=== PATIENT | female | born 1960 | race African-American/Black ===

== ENCOUNTER 2020-04-11 09:55 | Outpatient (REF) | payer OTHER, SELFPAY ==
[2020-04-11 13:50] LABS: Hematocrit 42.4 % (37-47); Hemoglobin 13.2 g/dl (12.0-16.0); Mean Corpuscular HGB Conc 31.1 g/dl (31.0-35.0); Mean Corpuscular Hemoglobin 29.5 pg (27.0-33.0); Mean Corpuscular Volume 94.6 fL (80-98); Mean Platelet Volume 11.3 fL (9.4-12.3); Platelet Count 259 X10*3/uL (160-400); Red Blood Count 4.48 X10*6/uL (4.20-5.50); Red Cell Distribution Width 14.2 % (11.0-16.0); White Blood Count 9.6 X10*3/uL (4.8-10.8)
[2020-04-11 14:12] LABS: Alanine Aminotransferase 34 U/L (0-31); Albumin Level 4.5 g/dL (3.5-5.0); Alkaline Phosphatase 101 U/L (39-117); Anion Gap 12 (12-20); Aspartate Amino Transferase 27 U/L (5-31); Bilirubin Direct < 0.2 mg/dL (0.0-0.5); Bilirubin Total 0.2 mg/dL (0.0-1.0); Blood Urea Nitrogen 21 mg/dL (9-16); Calcium 9.6 mg/dL (8.4-10.2); Carbon Dioxide 32 mmol/L (22-29); Chloride 105 mmol/L (96-108); Cholesterol 274 mg/dL; Estimated Glomerular Filt Rate > 60; Glucose Random 106 mg/dL (60-115); HDL Cholesterol 72 mg/dL; LDL Cholesterol Calculated 183 mg/dl; Potassium 4.7 mmol/l (3.3-5.1); Sodium 144 mmol/L (135-145); Total Protein 7.3 g/dL (6.5-8.0); Triglycerides 96 mg/dL
[2020-04-11 14:32] LABS: Thyroid Stimulating Hormone 0.54 uIU/mL (0.32-4.0)
[2020-04-11 15:09] LABS: Folate > 20.0 ng/mL (> or = 4.0); Vitamin B12 > 2000 pg/mL (200-900)
[2020-04-15 13:46] LABS: Vitamin D 25-OH, D2 <4 ng/mL; Vitamin D 25-OH, D3 54 ng/mL; Vitamin D 25-OH, Total 54 ng/mL (30-100)
== END 2020-04-11 09:56 | disposition home or self-care (01) ==
LOC: HO.10HDL 09:55
PROVIDERS: Visit Provider Internal Medicine
DX: I10 Essential (primary) hypertension (principal)
CPT/HCPCS: 36415; 80048; 80061; 80076; 82306; 82550; 82607; 82746; 84443; 85027

== ENCOUNTER 2020-05-07 13:01 | Outpatient (REF) | payer OTHER, SELFPAY ==
--- NOTE | ~2020-05-07 | MM_ITS ---
EXAMINATION: MM SCREENING DIGITAL BREAST TOMOSYNTHESIS, BILATERAL CLINICAL INFORMATION: Screening. Asymptomatic. The lifetime risk of breast cancer based on the Tyrer-Cuzick Model is 5%. COMPARISON: Mammography: 09/20/2018, 08/25/2017, 01/20/2017, 07/17/2016, 07/11/2016 (baseline), targeted left breast ultrasound 07/17/2016. TECHNIQUE: Digital breast tomosynthesis is performed in both the craniocaudal and mediolateral oblique views along with computer-aided detection (CAD). Synthesized 2D images are generated from the tomosynthesis. Additional bilateral CC views are provided. FINDINGS: There are scattered areas of fibroglandular density (ACR BI-RADS breast composition Category b). Breast tissue composition borders on heterogeneously dense in the anterior breasts. There is a stable circumscribed nodule central left breast similar to prior studies dating back to baseline exam 2016. Neither breast shows developing density or interval mass or architectural abnormality. No abnormal calcifications. No significant changes. MM/MM tomosynthesis screening BI IMPRESSION: No mammographic evidence of malignancy. ASSESSMENT: BI-RADS 2: Benign RECOMMENDATION: Routine annual mammography screening. This patient's information was entered into a reminder system with a target due date for their next mammogram.
== END 2020-05-07 13:02 | disposition home or self-care (01) ==
LOC: HO.MAMMO 13:01
PROVIDERS: PCP Internal Medicine; Visit Provider Internal Medicine
DX: Z12.31 Encounter for screening mammogram for malignant neoplasm of breast (principal)
CPT/HCPCS: 77063; 77067

== ENCOUNTER 2021-11-26 12:43 | Outpatient (REF) | payer OTHER, SELFPAY ==
--- NOTE | ~2021-11-26 | MM_ITS ---
EXAMINATION: MM SCREENING DIGITAL BREAST TOMOSYNTHESIS, BILATERAL CLINICAL INFORMATION: Screening. Asymptomatic. The lifetime risk of breast cancer based on the Tyrer-Cuzick Model is 4%. COMPARISON: Mammography: 05/07/2020 and studies dating back to 07/11/2016. TECHNIQUE: Digital breast tomosynthesis is performed in both the craniocaudal and mediolateral oblique views along with computer-aided detection (CAD). Synthesized 2D images are generated from the tomosynthesis. Additional right exaggerated craniocaudal view performed. FINDINGS: The breasts are heterogeneously dense, which may obscure small masses (ACR BI-RADS breast composition Category c). There are no significant masses, abnormal calcifications, or other abnormalities. There was question of an irregularly marginated density within the left breast on medial oblique projection however tomosynthesis views demonstrated this to represent superimposition of fibroglandular tissue. MM/MM tomosynthesis screening BI IMPRESSION: No mammographic evidence of malignancy. ASSESSMENT: BI-RADS 2: Benign. RECOMMENDATION: Routine annual mammography screening. This patient's information was entered into a reminder system with a target due date for their next mammogram.
== END 2021-11-26 12:44 | disposition home or self-care (01) ==
LOC: HO.MAMMO 12:43
PROVIDERS: PCP Internal Medicine; Visit Provider Internal Medicine
DX: Z12.31 Encounter for screening mammogram for malignant neoplasm of breast (principal)
CPT/HCPCS: 77063; 77067

== ENCOUNTER 2022-03-06 12:00 | Outpatient (REF) | payer OTHER, SELFPAY ==
[2022-03-06 14:33] LABS: Hematocrit 43.7 % (37.0-47.0); Hemoglobin 13.7 g/dl (12.0-16.0); Mean Corpuscular HGB Conc 31.4 g/dl (31.0-35.0); Mean Corpuscular Hemoglobin 29.5 pg (27.0-33.0); Mean Platelet Volume 11.4 fL (9.4-12.3); Platelet Count 310 X10*3/uL (160-400); Red Blood Count 4.65 X10*6/uL (4.20-5.50); Red Cell Distribution Width 14.4 % (11.0-16.0); White Blood Count 11.9 X10*3/uL (4.8-10.8)
[2022-03-06 15:16] LABS: Alanine Aminotransferase 35 U/L (0-31); Albumin Level 4.6 g/dL (3.5-5.0); Alkaline Phosphatase 118 U/L (39-117); Anion Gap 13 (12-20); Aspartate Amino Transferase 29 U/L (5-31); Bilirubin Direct < 0.2 mg/dL (0.0-0.5); Bilirubin Total 0.2 mg/dL (0.0-1.0); Blood Urea Nitrogen 18 mg/dL (9-16); Calcium 10.8 mg/dL (8.4-10.2); Carbon Dioxide 33 mmol/L (22-29); Chloride 103 mmol/L (96-108); Cholesterol 282 mg/dL; Estimated Glomerular Filt Rate 51; Glucose Random 111 mg/dL (60-115); HDL Cholesterol 73 mg/dL; LDL Cholesterol Calculated 179 mg/dl; Potassium 4.9 mmol/L (3.3-5.1); Sodium 144 mmol/L (135-145); Total Protein 7.5 g/dL (6.5-8.0); Triglycerides 152 mg/dL
[2022-03-06 17:21] LABS: Thyroid Stimulating Hormone 0.68 uIU/mL (0.32-4.0)
== END 2022-03-06 12:01 | disposition home or self-care (01) ==
LOC: HO.10HDL 12:00
PROVIDERS: Visit Provider Internal Medicine
DX: I10 Essential (primary) hypertension (principal)
CPT/HCPCS: 36415; 80048; 80061; 80076; 84443; 85027

== ENCOUNTER 2022-11-13 10:49 | Outpatient (AMB) | payer OTHER, SELFPAY ==
--- NOTE | 2022-11-13 10:51 | A.OFFPC_ITS ---
Vital Signs 11/13/22 10:52 Height 4 ft 11 in Weight 153 lb BMI 30.9 BP 160/100 H Blood Pressure Location Lt brachial Position Sitting Pulse 73 Pulse Source Pulse Oximeter Pulse Oximetry (%) 95 Oxygen Delivery Method Room Air Intake Visit Reasons: Annual exam Intake Note: Patient is here today for a physical. 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 Bolt Header: Not Required per policy Accompanied by: Self / Same As Patient Allergies No Known Allergies Allergy (Verified 11/13/22 14:45) Medication List - Last Reconciled 11/13/22 by Maxim Nye MD cyclobenzaprine 10 mg PO BEDTIME PRN lisinopril 40 mg PO DAILY metoprolol succinate ER 100 mg PO DAILY montelukast 10 mg PO DAILY omeprazole 20 mg PO DAILY simvastatin 80 mg PO BEDTIME spironolacton-hydrochlorothiaz 25-25 mg 1 tab PO DAILY Tobacco use date assessed: 11/13/22 Dental Screening Dental Screen Date: 11/13/22 Did you have a dental visit in the last 12 months?: Yes Did you have a dental problem in the last 6 months where you did not have access to dental care?: No Was dental information given to patient?: Patient has dentist HPI Annual exam HPI Details 62-year-old female presents to the office an annual physical. [facility] Medical History Essential (primary) hypertension Hypercalcemia Surgical History History of 3 sections History of ankle surgery History of cholecystectomy Social History Housing: House Alcohol intake: never Patient Tobacco Use Status: Never used Tobacco e-Cigarette/Vaping Use: Never Used Second Hand Smoke Exposure: No service: No Current occupational status: disabled Cognitive needs: No Hearing needs: No Vision needs: No Questionnaire Thrive Questionnaire Date Thrive assessed: 04/10/22 KRISTI-7 AMB Questionnaire KRISTI-7 Date KRISTI - 7 assessed: 04/10/22 Source: Developed by Drs. Malachi Angeles, Lisette Lipscomb, Tiago Garcia and colleagues, with an educational geena from [employer]. Physical exam (Primary Care) Vital Signs: Last Vital Signs Pulse 73 11/13/22 10:52 BP 160/100 H 11/13/22 10:52 Pulse Ox 95 11/13/22 10:52 Oxygen Delivery Method Room Air 11/13/22 10:52 Care Plan Goal for BP management: Blood pressure is elevated. Compliant with medications urged. Continue medications at same dosage. BMI result Body Mass Index 30.9 Tobacco/Smoking Status: Tobacco use Status Tobacco use date assessed 11/13/22 11/13/22 10:56 Patient Tobacco Use Status Never used Tobacco 11/13/22 10:56 e-Cigarette/Vaping Use Never Used 11/13/22 10:56 Thrive Assessment: Date of Thrive Assessment Date Thrive assessed 04/10/22 11/13/22 10:56 Advance Care Planning discussion: Exists, not on file Date of discussion: 11/13/22 Who was present: Patient Forms completed: MOLST Time spent: 1-15 minutes, not on file Actual minutes spent: 5 Const General: cooperative, healthy appearing and comfortable HENME Head: Yes normal to inspection and Yes atraumatic Eyes General: appearance normal, both eyes and all related structures Neck Neck: Yes normal visual inspection and Yes full ROM Chest Chest palpation & inspection: normal inspection of the chest and crepitus Resp Effort & Inspection: normal respiratory effort Auscultation: clear to auscultation bilaterally Cardio Jugular venous distension: no JVD Palpation: normal PMI Rate: regular rate Heart sounds: S1 normal heart sound present and S2 normal heart sound present GI Palpation (GI): Soft to palpation, Tenderness to palpation present (GI) and No hepatosplenomegaly present Extrem General: Yes normal to inspection and Yes full ROM Assessment and Plan Assessment & Plan (1) Essential (primary) hypertension: Code(s): I10 - Essential (primary) hypertension Plan: Blood pressure is elevated. Patient has not taken medications for a few days. Encourage compliance with medications. No change in dosages on the medication. (2) Annual physical exam: Code(s): Z00.00 - Encounter for general adult medical examination without abnormal findings Plan: Mammogram has been ordered. Up-to-date on colonoscopy. Coding Level of Care Code Est Pt Prev Care 40-64y(10335) Diagnoses Essential (primary) hypertension I10 Annual physical exam Z00.00 Additional Codes Vital Signs *Quality* - Advance Care Planning discussion: Exists, not on file ([id number]) Vital Signs *Quality* - Time spent: 1-15 minutes, not on file ([id number])
[2022-11-13 10:52] VITALS: BP 160/100; PULSE 73; O2SAT 95; BMI 30.9
== END 2022-11-13 11:11 | disposition home or self-care (01) ==
PROVIDERS: Visit Provider Internal Medicine
DX: I10 Essential (primary) hypertension (principal); Z00.00 Encounter for general adult medical examination without abnormal findings
CPT/HCPCS: 1123F; 1124F; 99396

== ENCOUNTER 2023-11-19 08:49 | Outpatient (AMB) | payer MEDICARE, SELFPAY ==
--- NOTE | 2023-11-19 08:50 | MHC.PC.OV ---
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 63-year-old female presents to the office to discuss her chronic medical conditions. Last week while going to a picnic, patient reports she collapsed on the sidewalk. She was taken to [facility] via ambulance. She was diagnosed with vasovagal syncope and noted to have elevated blood pressures. Patient's symptoms improved with IV hydration and discharged home. Patient does not check blood pressures at home as she does not have a cough. She lives with her son. Has been compliant with all 3 blood pressure medications. Reports occasional headache. Able to function and do all activities of daily living. Patient reports that she goes on walks with her dog and grandchildren. No shortness a breath, nausea or vomiting. [facility] Medical History Essential (primary) hypertension Hypercalcemia Surgical History History of ankle surgery History of 3 sections History of cholecystectomy Social History Housing: House Alcohol intake: never Patient Tobacco Use Status: Never used Tobacco e-Cigarette/Vaping Use: Never Used Second Hand Smoke Exposure: No service: No Current occupational status: disabled Cognitive needs: No Hearing needs: No Vision needs: No Questionnaire PHQ-9 Over the last 2 weeks, how often have you been bothered by any of the following problems? 1. Little interest or pleasure in doing things: not at all 2. Feeling down, depressed, or hopeless: not at all 3. Trouble falling or staying asleep, or sleeping too much: not at all 4. Feeling tired or having little energy: not at all 5. Poor appetite or overeating: not at all 6. Feeling bad about yourself - or that you are a failure or have let yourself or your family down: not at all 7. Trouble concentrating on things, such as reading the newspaper or watching television: not at all 8. Moving or speaking so slowly that other people could have noticed. Or the opposite - being so fidgety or restless that you have been moving around a lot more than usual: not at all 9. Thoughts that you would be better off or of hurting yourself in some way: not at all Total score: 0 Depression Screening Interpretation: Negative Depression Screening Done: Yes 08163 - PHQ-9 Billing: Yes Source: Developed by Drs. Malachi Angeles, Lisette Lipscomb, Tiago Garcia and colleagues, with an educational geena from [employer]. Thrive Questionnaire Date Thrive assessed: 11/19/23 I am a: Patient What is your living situation today?: I have a steady place to live Within the past 12 months, did the food you bought not last and you didn't have the money to get more?: Never true Within the past 12 months, did you worry whether your food would run out before you got money to buy more?: Never true Do you have trouble paying for medicines?: No Do you have trouble getting transportation to medical appointments?: No Do you have trouble paying your heating and electricity bill?: No Do you have trouble taking care of your child, family member or friend?: No Do you have trouble with day-to-day activities such as bathing, preparing meals, shopping, managing finances, etc.?: No Are you currently unemployed and looking for a job?: No Are you interested in more education?: No Please select the resources that you would like help with: None Currently or been in a relationship where the following occur: No concerns reported THRIVE Score: 0 AUDIT C Alcohol Use Questionnaire (AUDIT-C) 1. How often do you have a drink containing alcohol?: Never 3. How often do you have six or more drinks on one occasion?: Never Total Score: 0 KRISTI-7 AMB Questionnaire KRISTI-7 Date KRISTI - 7 assessed: 11/19/23 Feeling nervous, anxious, or on edge: 0 = Not at all Not being able to stop or control worryin = Not at all Worrying too much about different things: 0 = Not at all Trouble relaxin = Not at all Being so restless that it is hard to sit still: 0 = Not at all Becoming easily annoyed or irritable: 0 = Not at all Feeling afraid as if something awful might happen: 0 = Not at all Total KRISTI-7 score (0-4 normal; 5-9 mild; 10-14 moderate; 15-21 severe): 0 Source: Developed by Drs. Malachi Angeles, Lisette Lipscomb, Tiago Garcia and colleagues, with an educational geena from [employer]. Physical exam (Primary Care) Vital Signs: Last Vital Signs Pulse 85 11/19/23 08:51 BP 148/110 H 11/19/23 09:01 Pulse Ox 99 11/19/23 08:51 Oxygen Delivery Method Room Air 11/19/23 08:51 BMI result Body Mass Index 30.4 Tobacco/Smoking Status: Tobacco use Status Tobacco use date assessed 11/19/23 11/19/23 08:52 Patient Tobacco Use Status Never used Tobacco 11/19/23 08:52 e-Cigarette/Vaping Use Never Used 11/19/23 08:52 PHQ-9: PHQ-9 Score PHQ-9: Total score 0 11/19/23 08:52 Depression Screening Interpretation: Negative Thrive Assessment: Date of Thrive Assessment Date Thrive assessed 11/19/23 11/19/23 08:52 Currently or been in a relationship where the following occur: No concerns reported Const General: cooperative and healthy appearing Nutritional Appearance: well nourished Orientation/consciousness: patient oriented x3 Limitations: no limitations HENMT Head: Yes normal to inspection Eyes General: appearance normal, both eyes and all related structures Neck Neck: Yes normal visual inspection Chest Chest palpation & inspection: normal palpation of entire chest wall Resp Effort & Inspection: normal respiratory effort Neuro General: patient oriented x3 Assessment and Plan Assessment & Plan (1) Essential (primary) hypertension: Code(s): I10 - Essential (primary) hypertension Plan: 15 minutes spent reviewing the emergency room visit. Patient reports she is no longer homeless and is compliant with 3 blood pressure medications. Blood pressure is still continues to be high. A blood pressure cuff has been ordered, so that she can take frequent readings at home. Also community navigation has been involved so that we can continue to monitor her blood pressures. If there is a trend of elevated blood pressures present, I will be discontinuing a few of her current medications and adding new medications. 30 minutes in total was spent explaining to the patient the current plan. Orders: Referrals Gastroenterology Referral Z12.11 - Encounter for screening for malignant neoplasm of colon Coding Level of Care Code Est Pt Level 4 (52889) Complex EM visit Add On G2211 Diagnoses Essential (primary) hypertension I10
[2023-11-19 08:51] VITALS: BP 142/100; PULSE 85; O2SAT 99; BMI 30.4
[2023-11-19 09:01] VITALS: BP 148/110
== END 2023-11-19 10:16 | disposition home or self-care (01) ==
PROVIDERS: PCP Internal Medicine; Visit Provider Internal Medicine
DX: I10 Essential (primary) hypertension (principal)
CPT/HCPCS: 99214; G2211

== ENCOUNTER → 2023-12-24 08:50 | Outpatient (BNVA) | payer MEDICARE, SELFPAY | PROVIDERS: PCP Internal Medicine ==

== ENCOUNTER → 2023-12-31 08:53 | Outpatient (BNVA) | payer MEDICARE, SELFPAY | PROVIDERS: PCP Internal Medicine ==

== ENCOUNTER → 2024-01-14 08:43 | Outpatient (BNVA) | payer MEDICARE, SELFPAY | PROVIDERS: PCP Internal Medicine ==

== ENCOUNTER 2024-08-05 12:53 | Outpatient (AMB) | payer MEDICARE, SELFPAY ==
--- NOTE | 2024-08-05 12:54 | MHC.PC.OV ---
Vital Signs 08/05/24 12:56 Height 4 ft 11 in Weight 138 lb 4 oz BMI 27.9 BP 122/72 Blood Pressure Location Lt brachial Position Sitting Pulse 55 Pulse Source Pulse Oximeter Temp 96.9 F Temp Source Temporal Artery Scan Pulse Oximetry (%) 100 Oxygen Delivery Method Room Air Intake Visit Reasons: [facility] 07/15 fall & seizure Intake Note: Patient is here for hospital discharge follow up. Patient was discharged from [facility] on 07/14/24. Child Welfare Caseworker Required: No Busperson: Not Required per policy Accompanied by: Self / Same As Patient Allergies No Known Allergies Allergy (Verified 08/05/24 12:56) Tobacco use date assessed: 08/05/24 Dental Screening Dental Screen Date: 08/05/24 Did you have a dental visit in the last 12 months?: No Did you have a dental problem in the last 6 months where you did not have access to dental care?: No Was dental information given to patient?: Patient has dentist HPI HPI Comments History of Present Illness Details 64 y/o Female patient who presents to the clinic today for HDF. Pmhx significant for HTN, GERD, and HDL. She was admitted at [facility] on 07/12 - 07/14 for Syncopal episode. EEG/ECG/CT/ECHO and MRI Negative. All lab work-up negative. She suffered a Lamina Papyracea fracture with minimal displacement and not requiring surgery at this time. Hypotension is believed to be a contributing factor to the syncopal episode. Hydralazine was D/C. Today patient reports still taking the Hydralazine, I just can't stop taking my medications, just like that . Denies any further Episodes since the discharge. ED physicians recommended Holter Monitor for the Patient to wear - will order one today. [facility] Medical History (Updated 08/05/24 @ 13:05 by Shanti Rich NP) Syncope Hypercalcemia Essential (primary) hypertension Surgical History History of ankle surgery History of 3 sections History of cholecystectomy Social History Housing: House Alcohol intake: never Patient Tobacco Use Status: Never used Tobacco e-Cigarette/Vaping Use: Never Used Second Hand Smoke Exposure: No service: No Current occupational status: disabled Cognitive needs: No Hearing needs: No Vision needs: No Questionnaire PHQ-9 Over the last 2 weeks, how often have you been bothered by any of the following problems? 1. Little interest or pleasure in doing things: not at all 2. Feeling down, depressed, or hopeless: not at all 3. Trouble falling or staying asleep, or sleeping too much: not at all 4. Feeling tired or having little energy: more than half the days 5. Poor appetite or overeating: more than half the days 6. Feeling bad about yourself - or that you are a failure or have let yourself or your family down: more than half the days 7. Trouble concentrating on things, such as reading the newspaper or watching television: more than half the days 8. Moving or speaking so slowly that other people could have noticed. Or the opposite - being so fidgety or restless that you have been moving around a lot more than usual: not at all 9. Thoughts that you would be better off or of hurting yourself in some way: not at all Total score: 8 Depression Screening Interpretation: Positive Depression Screening Done: Yes Source: Developed by Drs. Malachi Angeles, Lisette Lipscomb, Tiago Garcia and colleagues, with an educational geena from [employer]. Thrive Questionnaire Date Thrive assessed: 08/05/24 I am a: Patient What is your living situation today?: I have a steady place to live Within the past 12 months, did the food you bought not last and you didn't have the money to get more?: Never true Within the past 12 months, did you worry whether your food would run out before you got money to buy more?: Never true Do you have trouble paying for medicines?: No Do you have trouble getting transportation to medical appointments?: No Do you have trouble paying your heating and electricity bill?: No Do you have trouble taking care of your child, family member or friend?: No Do you have trouble with day-to-day activities such as bathing, preparing meals, shopping, managing finances, etc.?: No Are you currently unemployed and looking for a job?: No Are you interested in more education?: No Please select the resources that you would like help with: None Currently or been in a relationship where the following occur: No concerns reported THRIVE Score: 0 AUDIT C Alcohol Use Questionnaire (AUDIT-C) 1. How often do you have a drink containing alcohol?: Never Total Score: 0 KRISTI-7 AMB Questionnaire KRISTI-7 Date KRISTI - 7 assessed: 08/05/24 Feeling nervous, anxious, or on edge: 0 = Not at all Not being able to stop or control worryin = Not at all Worrying too much about different things: 0 = Not at all Trouble relaxin = Not at all Being so restless that it is hard to sit still: 0 = Not at all Becoming easily annoyed or irritable: 0 = Not at all Feeling afraid as if something awful might happen: 0 = Not at all Total KRISTI-7 score (0-4 normal; 5-9 mild; 10-14 moderate; 15-21 severe): 0 Source: Developed by Drs. Malachi Angeles, Lisette Lipscomb, Tiago Garcia and colleagues, with an educational geena from [employer]. Review of Systems Const All systems reviewed & are unremarkable except as noted in HPI and below Physical exam (Primary Care) Vital Signs: Last Vital Signs Temp 96.9 F 08/05/24 12:56 Pulse 55 08/05/24 12:56 BP 122/72 08/05/24 12:56 Pulse Ox 100 08/05/24 12:56 Oxygen Delivery Method Room Air 08/05/24 12:56 BMI result Body Mass Index 27.9 Tobacco/Smoking Status: Tobacco use Status Tobacco use date assessed 08/05/24 08/05/24 13:02 Patient Tobacco Use Status Never used Tobacco 08/05/24 13:02 e-Cigarette/Vaping Use Never Used 08/05/24 13:02 PHQ-9: PHQ-9 Score PHQ-9: Total score 8 08/05/24 13:06 Depression Screening Interpretation: Positive Thrive Assessment: Date of Thrive Assessment Date Thrive assessed 08/05/24 08/05/24 13:02 Currently or been in a relationship where the following occur: No concerns reported Const General: no acute distress Nutritional Appearance: well nourished Orientation/consciousness: patient oriented x3 Resp Effort & Inspection: normal respiratory effort Auscultation: clear to auscultation bilaterally Cardio Heart sounds: S1 normal heart sound present and S2 normal heart sound present Neuro General: patient oriented x3, gait normal and moves all extremities Coding Level of Care Code Est Pt Level 4 (90140) Diagnoses Syncope, unspecified syncope type R55 Syncope type: unspecified Time Spent (min) 20 Assessment & Plan Assessment & Plan (1) Syncope: Code(s): R55 - Syncope and collapse Category: Medical Qualifiers: Syncope type: unspecified Qualified Code(s): R55 - Syncope and collapse Plan: Resolved. Ordered Holter Monitor for 5 days.
[2024-08-05 12:56] VITALS: BP 122/72; PULSE 55; TEMP 36.1; O2SAT 100; BMI 27.9
--- OUTSIDE RECORDS SUMMARY | 2024-08-05 12:56 | XMS_ITS | Data Portability ---
Author Organization [facility] - ERIN [facility]ERRERO [facility], Main Office Address [address] [place] [address] Assessment Encounter Date Assessment Date Assessment LastModified by Organization Details LastModified Time 12/22/2022 12/22/2022 19 min [email or web address] Not available 14:24:28 04/06/2023 04/06/2023 [place]medicine [place] audio. 21 min [email or web address] Not available 04/06/2023 11:41:03 07/06/2023 07/06/2023 [place]medicine [place] audio. 21 min [email or web address] Not available 07/06/2023 09:50:24 10/06/2023 10/06/2023 Video. [place]medicine [place]. [place]. 18 min [email or web address] Not available 10/07/2023 00:11:55 12/30/2023 12/30/2023 Audio telemedicine [place]. [place] 23 min [email or web address] Not available 12/30/2023 11:09:17 Plan of Treatment Reminders Order Date Submit Date Provider Last Modified By Organization Details Last Modified Time Details Appointments None recorded. Lab hepatitis B DNA, quantitat alphonse, serum 2023 024 KENNEDY [facility] (Centralized Electronic Ordering - All Locations), Patient Can Go To The Location Of Their Choice, [id number] 4 09:52:59 hepatitis D Ab, serum 2023 024 KENNEDY [facility] ([facility]ized [facility] Ordering - All Locations), Patient Can Go To The Location Of Their Choice, [id number] 09:52:58 hepatitis C liver status biomarker panel, serum 2023 024 KENNEDY [facility] ([facility]ized [facility] Ordering - All Locations), Patient Can Go To The Location Of Their Choice, 4 16:05:41 albumin, serum or plasma 2023 024 KENNEDY [facility] ([facility] Ordering - All Locations), Patient Can Go To The Location Of Their Choice, 4 16:05:45 bilirubin , total, serum or plasma 2023 024 KENNEDY [facility] ([facility] Ordering - All Locations), Patient Can Go To The Location Of Their Choice, 16:05:46 hemoglobi n A1c + average glucose, QN, blood 2023 024 [email or web address] [facility] ([facility] Ordering - All Locations), Patient Can Go To The Location Of Their Choice, 09:43:58 TSH, serum or plasma 2023 024 [email or web address] [facility] ([facility] Ordering - All Locations), Patient Can Go To The Location Of Their Choice, 09:43:58 lipid panel, serum 2023 024 [email or web address] [facility] ([facility] Ordering - All Locations), Patient Can Go To The Location Of Their Choice, 09:43:58 CBC w/ diff 2023 KENNEDY [facility] ([facility]ized [facility] Ordering - All Locations), Patient Can Go To The Location Of Their Choice, 4 16:05:40 electroly estefania panel, blood 2023 024 KENNEDY [facility] ([facility] Ordering - All Locations), Patient Can Go To The Location Of Their Choice, 09:52:59 ALT (alanine aminotran sferase), serum or plasma 2023 024 KENNEDY [facility] ([facility] Ordering - All Locations), Patient Can Go To The Location Of Their Choice, 4 16:05:47 AST/SGOT (aspartat e aminotran sferase), serum or plasma 2023 [facility]), Patient Can Go To The Location Of Their Choice, 4 16:05:46 CT + NG DNA, PCR, unspecifi ed specimen 2023 [facility]ORSICANA [facility]ations), Patient Can Go To The Location Of Their Choice, 4 16:05:44 creatinin e w/ estimated GFR (eGFR), serum or plasma 2023 024 [facility]ORS[facility]NA [facility] - [facility] Locations), Patient Can Go To The Location Of Their Choice, 4 16:05:44 hepatitis C virus Ab, serum 2023 024 [facility] - [facility] Locations), Patient Can Go To The Location Of Their Choice, 4 09:53:01 HIV-1 RNA, quantitat alphonse, PCR, serum or plasma 2023 [facility] ([facility] - All Locations), Patient Can Go To The Location Of Their Choice, 4 16:05:43 RPR (rapid plasma reagin), serum 2023 024 [facility] ([facility] - All Locations), Patient Can Go To The Location Of Their Choice, 4 06:05:23 T-cell regulator y subsets panel, blood 2023 024 [facility] ([facility] - All Locations), Patient Can Go To The Location Of Their Choice, 4 09:53:00 hepatitis B DNA, quantitat alphonse, serum 2023 024 [facility] ([facility] - All Locations), Patient Can Go To The Location Of Their Choice, 4 10:03:08 hepatitis D Ab, serum 2023 024 KENNEDY [facility] Locations), Patient Can Go To The Location Of Their Choice, 10:02:50 hepatitis C liver status biomarker panel, serum 2023 KENNEDY [facility] ([facility] Ordering - All Locations), Patient Can Go To The Location Of Their Choice, 10:02:50 albumin, serum or plasma 2023 KENNEDY [facility] ([facility] Ordering - All Locations), Patient Can Go To The Location Of Their Choice, 10:03:07 bilirubin , total, serum or plasma 2023 KENN[facility]Y [facility] ([facility] Ordering - All Locations), Patient Can Go To The Location Of Their Choice, 10:02:50 CBC w/ diff 2023 KENNEDY [facility] ([facility] Ordering - All Locations), Patient Can Go To The Location Of Their Choice, 10:02:49 electroly estefania panel, blood 2023 KENNEDY [facility] ([facility] Ordering - All Locations), Patient Can Go To The Location Of Their Choice, 10:03:08 ALT (alanine aminotran sferase), serum or plasma 2023 KENNEDY [facility] ([facility] Order[facility] - All Locations), Patient Can Go To The Location Of Their Choice, 10:02:51 AST/SGOT (aspartat e aminotran sferase), serum or plasma 2023 KENNEDY [facility] ([facility] Order[facility] - All Locations), Patient Can Go To The Location Of Their Choice, 10:02:51 CT + NG DNA, PCR, unspecifi ed specimen 2023 KENNEDY [facility] ([facility] Order[facility] - All Locations), Patient Can Go To The Location Of Their Choice, 10:03:06 creatinin e w/ estimated GFR (eGFR), serum or plasma 2023 KENNEDY [facility] ([facility] Order[facility] - All Locations), Patient Can Go To The Location Of Their Choice, 10:02:52 hepatitis C virus Ab, serum 2023 KENNEDY [facility] ([facility] Order[facility] - All Locations), Patient Can Go To The Location Of Their Choice, 10:02:51 HIV-1 RNA, quantitat alphonse, PCR, serum or plasma 2023 KENNEDY [facility] ([facility] Order[facility] - All Locations), Patient Can Go To The Location Of Their Choice, 10:03:07 RPR (rapid plasma reagin), serum 2023 KENNEDY [facility] ([facility] Ordering - All Locations), Patient Can Go To The Location Of Their Choice, 10:02:52 T-cell regulator y subsets panel, blood 2023 KENNEDY [facility] ([facility] Order[facility] - All Locations), Patient Can Go To The Location Of Their Choice, 10:02:50 hepatitis B DNA, quantitat alphonse, serum 2023 024 [email or web address] [facility] ([facility] Ordering - All Locations), Patient Can Go To The Location Of Their Choice, 4 00:46:58 hepatitis D Ab, serum 2023 024 [email or web address] [facility] ([facility] Ordering - All Locations), Patient Can Go To The Location Of Their Choice, 00:46:58 hepatitis C liver status biomarker panel, serum 2023 024 [email or web address] [facility] ([facility] Order[facility] - All Locations), Patient Can Go To The Location Of Their Choice, 00:46:59 albumin, serum or plasma 2023 024 [facility] ([facility] Order[facility] - All Locations), Patient Can Go To The Location Of Their Choice, 4 00:46:59 bilirubin , total, serum or plasma 2023 024 [email or web address] [facility] ([facility] Order[facility] - All Locations), Patient Can Go To The Location Of Their Choice, 00:46:59 CBC w/ diff 2023 024 [email or web address] [facility] ([facility] Order[facility] - All Locations), Patient Can Go To The Location Of Their Choice, 00:46:56 electroly estefania panel, blood 2023 024 [email or web address] [facility] ([facility] Order[facility] - All Locations), Patient Can Go To The Location Of Their Choice, 00:46:56 ALT (alanine aminotran sferase), serum or plasma 2023 024 [email or web address] [facility] ([facility] Order[facility] - All Locations), Patient Can Go To The Location Of Their Choice, 00:46:56 AST/SGOT (aspartat e aminotran sferase), serum or plasma 2023 024 [email or web address] [facility] ([facility] Ordering - All Locations), Patient Can Go To The Location Of Their Choice, 00:46:56 CT + NG DNA, PCR, unspecifi ed specimen 2023 024 [email or web address] [facility] ([facility] Ordering - All Locations), Patient Can Go To The Location Of Their Choice, 4 00:46:57 creatinin e w/ estimated GFR (eGFR), serum or plasma 2023 024 [email or web address] [facility] ([facility] Order[facility] - All Locations), Patient Can Go To The Location Of Their Choice, 4 00:46:57 hepatitis C virus Ab, serum 2023 024 [email or web address] [facility] ([facility] Order[facility] - All Locations), Patient Can Go To The Location Of Their Choice, 4 00:46:57 HIV-1 RNA, quantitat alphonse, PCR, serum or plasma 2023 024 [email or web address] [facility] ([facility] Order[facility] - All Locations), Patient Can Go To The Location Of Their Choice, 4 00:46:57 RPR (rapid plasma reagin), serum 2023 024 [facility] ([facility] Order[facility] - All Locations), Patient Can Go To The Location Of Their Choice, 4 00:46:58 T-cell regulator y subsets panel, blood 2023 024 [email or web address] [facility] ([facility] Order[facility] - All Locations), Patient Can Go To The Location Of Their Choice, 4 00:46:58 hepatitis B DNA, quantitat alphonse, serum 2022 023 [email or web address] [facility] ([facility] Order[facility] - All Locations), Patient Can Go To The Location Of Their Choice, 3 16:07:30 hepatitis D Ab, serum 2022 023 [facility] ([facility] Order[facility] - All Locations), Patient Can Go To The Location Of Their Choice, 3 16:07:30 hepatitis C liver status biomarker panel, serum 2022 023 [email or web address] [facility] ([facility] Order[facility] - All Locations), Patient Can Go To The Location Of Their Choice, 3 16:07:30 CBC w/ diff 2022 023 [email or web address] [facility] ([facility] Order[facility] - All Locations), Patient Can Go To The Location Of Their Choice, 3 16:07:28 electroly estefania panel, blood 2022 023 [email or web address] [facility] ([facility] Order[facility] - All Locations), Patient Can Go To The Location Of Their Choice, 3 16:07:28 ALT (alanine aminotran sferase), serum or plasma 2022 023 Leondra music [facility] ([facility] Order[facility] - All Locations), Patient Can Go To The Location Of Their Choice, 16:07:28 AST/SGOT (aspartat e aminotran sferase), serum or plasma 2022 023 [email or web address] [facility] ([facility] Order[facility] - All Locations), Patient Can Go To The Location Of Their Choice, 16:07:28 CT + NG DNA, PCR, unspecifi ed specimen 2022 023 Leondra music [facility] ([facility] Order[facility] - All Locations), Patient Can Go To The Location Of Their Choice, 16:07:29 creatinin e w/ estimated GFR (eGFR), serum or plasma 2022 023 [email or web address] [facility] ([facility] Order[facility] - All Locations), Patient Can Go To The Location Of Their Choice, 16:07:29 hepatitis C virus Ab, serum 2022 023 Leondra music [facility] ([facility] Order[facility] - All Locations), Patient Can Go To The Location Of Their Choice, 16:07:29 HIV-1 RNA, quantitat alphonse, PCR, serum or plasma 2022 023 Leondra music [facility] ([facility] Order[facility] - All Locations), Patient Can Go To The Location Of Their Choice, 16:07:29 RPR (rapid plasma reagin), serum 2022 023 [email or web address] [facility] ([facility] Order[facility] - All Locations), Patient Can Go To The Location Of Their Choice, 16:07:29 T-cell regulator y subsets panel, blood 2022 023 [email or web address] [facility] ([facility] Order[facility] - All Locations), Patient Can Go To The Location Of Their Choice, 3 16:07:29 Referral None recorded. Procedures None recorded. Surgeries None recorded. Imaging CT, abdomen, w/wo contrast - abnormal ultrasoun d 12/29/23: calcified granuloma s liver/spl een 2023 024 [email or web address] [facility], [address], [place], [address], 4 12:23:05 US, abdomen - dx HBV. HCC screen [address] [facility] [place], [address], [address], [place], [address], 4 09:58:13 US, liver - HCC screen. 2023 024 KENNEDY [facility] [place], [address], [address], [place], [address], 4 23:10:24 Medication Orders Atripla 600 mg-200 mg-300 mg tablet 2023 024 [facility] [address], [address], [address], [place], [place], [id number], 4 11:24:21 Atripla 600 mg-200 mg-300 mg tablet 2023 024 [facility] [address], [address], [address], [place], [place], [id number], 4 09:53:09 azithromy shawn 500 mg tablet 2023 024 CORSICANA [facility], [address], [place], [address], 4 10:04:04 Atripla 600 mg-200 mg-300 mg tablet 2023 024 [facility] [address], [address], [address], [place], [place], [id number], 4 10:03:58 Atripla 600 mg-200 mg-300 mg tablet 2023 024 KENNEDY [place] [address] [address], [address], [address] , [place], [place], [id number], 4 11:48:10 Atripla 600 mg-200 mg-300 mg tablet 2022 023 [email or web address] [place] [address] [address], [address], [address], [place], [place], [id number], 3 00:03:30 Patient TargetsNo targets recorded. Patient InstructionsNo instructions recorded. Reason for Referral None Reported. Results Created Date Observation Date Name Description Value Unit Range Abnormal Flag Note LastModifiedBy Organization Detail LastModifiedTime 11/02/1911/03/2023 CT, NG, TRICH VAG BY SAFIA chlamydia by SAFIA Negati ve negati ve Not Available [facility] ([facility]) [address] [place], [address], 11/03/2023 18:06:05 11/02/1911/03/2023 CT, NG, TRICH VAG BY SAFIA gonococcus by SAFIA Negati ve negati ve Not Available [facility] ([facility]) [address] [place], [address], 11/03/2023 18:06:05 11/02/1911/03/2023 CT, NG, TRICH VAG BY SAFIA trich vag by SAFIA Negati ve negati ve Not Available [facility] ([facility]) [address] [place], [address], 11/03/2023 18:06:05 11/02/19 24 11/10/2023 HCV ANTIB VIDYA hep C virus Ab Non Reacti ve non reacti ve HCV antib vidya alone does not diffe renti ate betwe en previ ously resol moriah infec tion and activ e infec tion. Equiv ocal and React alphonse HCV antib vidya resul ts shoul d be follo wed up with an HCV RNA test to suppo rt the diagn osis of activ e HCV infec tion. Not Available [facility] ([facility]) [address] [facility], [place], [address], 11/10/2023 06:05:21 11/02/19 24 11/10/2023 RPR RPR Non Reacti ve non reacti ve Not Available [facility] ([facility]) [address] [facility], [place], [address], 11/10/2023 06:05:23 11/02/19 24 11/04/2023 CBC/D /PLT W/ REFLE X EZE TIN WBC 7.4 x10e3 /uL 3.4-10 .8 normal Not Available [facility] ([facility]) [address] [facility], [place], [address], 11/15/2023 16:05:40 11/02/19 24 11/04/2023 CBC/D /PLT W/ REFLE X EZE TIN RBC 4.45 x10e6 /uL 3.77-5 .28 normal Not Available [facility] ([facility]) [address] [facility], [place], [address], 11/15/2023 16:05:40 11/02/19 24 11/04/2023 CBC/D /PLT W/ REFLE X EZE TIN hemoglobin 13.7 g/dL 11.1-1 5.9 normal Not Available [facility] ([facility]) [address] [place], [address], 11/15/2023 16:05:40 11/02/19 24 11/04/2023 CBC/D /PLT W/ REFLE X EZE TIN hematocrit 43.0 % 34.0-4 6.6 normal Not Available [facility] ([facility]) [address] [place], [address], 11/15/2023 16:05:40 11/02/19 24 11/04/2023 CBC/D /PLT W/ REFLE X EZE TIN MCV 97 fL 79-97 normal Not Available [facility] ([facility]) [address] [facility], [place], [address], 11/15/2023 16:05:40 11/02/19 24 11/04/2023 CBC/D /PLT W/ REFLE X EZE TIN MCH 30.8 pg 26.6-3 3.0 normal Not Available [facility] ([facility]) [address] [facility], [place], [address], 11/15/2023 16:05:40 11/02/19 24 11/04/2023 CBC/D /PLT W/ REFLE X EZE TIN MCHC 31.9 g/dL 31.5-3 5.7 normal Not Available [facility] ([facility]) [address] [facility], [place], [address], 11/15/2023 16:05:40 11/02/19 24 11/04/2023 CBC/D /PLT W/ REFLE X EZE TIN RDW 13.9 % 11.7-1 5.4 Not Available [facility] ([facility]) [address] [facility], [place], [address], 11/15/2023 16:05:40 11/02/19 24 11/04/2023 CBC/D /PLT W/ REFLE X EZE TIN platelets 216 x10e3 /uL 150-45 0 normal Not Available [facility] ([facility]) [address] [facility], [place], [address], 11/15/2023 16:05:40 11/02/19 24 11/04/2023 CBC/D /PLT W/ REFLE X EZE TIN neutrophils 69 % not estab. normal Not Available [facility] ([facility]) [address] [facility], [place], [address], 11/15/2023 16:05:40 11/02/19 24 11/04/2023 CBC/D /PLT W/ REFLE X EZE TIN lymphs 19 % not estab. normal Not Available [facility] ([facility]) [address] [facility], [place], [address], 11/15/2023 16:05:40 11/02/19 24 11/04/2023 CBC/D /PLT W/ REFLE X EZE TIN monocytes 7 % not estab. normal Not Available [facility] ([facility]) [address] [facility], [place], [address], 11/15/2023 16:05:40 11/02/19 24 11/04/2023 CBC/D /PLT W/ REFLE X EZE TIN eos 3 % not estab. normal Not Available [facility] ([facility]) [address] [facility], [place], [address], 11/15/2023 16:05:40 11/02/19 24 11/04/2023 CBC/D /PLT W/ REFLE X EZE TIN basos 1 % not estab. normal Not Available [facility] ([facility]) [address] [facility], [place], [address], 11/15/2023 16:05:40 11/02/19 24 11/04/2023 CBC/D /PLT W/ REFLE X EZE TIN immature cells COMEDIAN Not Available [facility] ([facility]) [address] [facility], [place], [address], 11/15/2023 16:05:40 11/02/19 24 11/04/2023 CBC/D /PLT W/ REFLE X EZE TIN neutrophils (absolute) 5.1 x10e3 /uL 1.4-7. 0 normal Not Available [facility] ([facility]) [address] [facility], [place], [address], 11/15/2023 16:05:40 11/02/19 24 11/04/2023 CBC/D /PLT W/ REFLE X EZE TIN lymphs (absolute) 1.4 x10e3 /uL 0.7-3. 1 normal Not Available [facility] ([facility]) [address] [facility], [place], [address], 11/15/2023 16:05:40 11/02/19 24 11/04/2023 CBC/D /PLT W/ REFLE X EZE TIN monocytes(ab solute) 0.5 x10e3 /uL 0.1-0. 9 normal Not Available [facility] ([facility]) [address] [facility], [place], [address], 11/15/2023 16:05:40 11/02/19 24 11/04/2023 CBC/D /PLT W/ REFLE X EZE TIN eos (absolute) 0.2 x10e3 /uL 0.0-0. 4 normal Not Available [facility] ([facility]) [address] [facility], [place], [address], 11/15/2023 16:05:40 11/02/19 24 11/04/2023 CBC/D /PLT W/ REFLE X EZE TIN baso (absolute) 0.1 x10e3 /uL 0.0-0. 2 normal Not Available [facility] ([facility]) [address] [facility], [place], [address], 11/15/2023 16:05:40 11/02/19 24 11/04/2023 CBC/D /PLT W/ REFLE X EZE TIN immature granulocytes 1 % not estab. Not Available [facility] ([facility]) [address] [facility], [place], [address], 11/15/2023 16:05:40 11/02/19 24 11/04/2023 CBC/D /PLT W/ REFLE X EZE TIN immature grans (abs) 0.1 x10e3 /uL 0.0-0. 1 Not Available [facility] ([facility]) [address] [facility], [place], [address], 11/15/2023 16:05:40 11/02/19 24 11/04/2023 CBC/D /PLT W/ REFLE X EZE TIN NRBC COMEDIAN Not Available [facility] ([facility]) [address] [facility], [place], [address], 11/15/2023 16:05:40 11/02/19 24 11/04/2023 CBC/D /PLT W/ REFLE X EZE TIN hematology comments: COMEDIAN Not Available [facility] ([facility]) [address] [facility], [place], [address], 11/15/2023 16:05:40 11/02/19 24 11/04/2023 T-ALYSSA L ACTIV ATION , CD8 SUBSE TS absolute cd 3 1096 /uL 622-24 02 Not Available [facility] ([facility]) [address] [facility], [place], [address], 11/15/2023 16:05:41 11/02/19 24 11/04/2023 T-ALYSSA L ACTIV ATION , CD8 SUBSE TS % cd 3 pos. lymph. 78.3 % 57.5-8 6.2 Not Available [facility] ([facility]) [address] [facility], [place], [address], 11/15/2023 16:05:41 11/02/19 24 11/04/2023 T-ALYSSA L ACTIV ATION , CD8 SUBSE TS absolute cd 4 helper 620 /uL 359-15 19 Not Available [facility] ([facility]) [address] [facility], [place], [address], 11/15/2023 16:05:41 11/02/19 24 11/04/2023 T-ALYSSA L ACTIV ATION , CD8 SUBSE TS % cd 4 pos. lymph. 44.3 % 30.8-5 8.5 Not Available [facility] ([facility]) [address] [facility], [place], [address], 11/15/2023 16:05:41 11/02/19 24 11/04/2023 T-ALYSSA L ACTIV ATION , CD8 SUBSE TS absolute cd 8 (supp) 479 /uL 109-89 7 Not Available [facility] ([facility]) [address] [place], [address], 11/15/2023 16:05:41 11/02/19 24 11/04/2023 T-ALYSSA L ACTIV ATION , CD8 SUBSE TS % cd 8 pos. lymph. 34.2 % 12.0-3 5.5 Not Available [facility] ([facility]) [address] [place], [address], 11/15/2023 16:05:41 11/02/19 24 11/04/2023 T-ALYSSA L ACTIV ATION , CD8 SUBSE TS cd4/cd8 ratio 1.30 0.92-3 .72 Not Available [facility] ([facility]) [address] [place], [address], 11/15/2023 16:05:41 11/02/19 24 11/04/2023 T-ALYSSA L ACTIV ATION , CD8 SUBSE TS abs.cd8+hla- dr+lymph 139 /uL 0-117 above high normal This test was devel oped and its perfo rmanc e katia cteri stics deter mined by [employer]. It has not been clear ed or appro moriah by the Food and Drug Admin istra tion. Not Available [facility] ([facility]) [address] [place], [address], 11/15/2023 16:05:41 11/02/19 24 11/04/2023 T-ALYSSA L ACTIV ATION , CD8 SUBSE TS % cd8+hla-dr+ lymphs 9.9 % 0.0-4. 9 above high normal This test was devel oped and its perfo rmanc e katia cteri stics deter mined by [employer]. It has not been clear ed or appro moriah by the Food and Drug Admin istra tion. Not Available [facility] ([facility]) [address] [facility], [place], [address], 11/15/2023 16:05:41 11/02/19 24 11/04/2023 T-ALYSSA L ACTIV ATION , CD8 SUBSE TS % cd3+cd25+ lymphs 18.7 % 4.9-25 .9 This test was devel oped and its perfo rmanc e katia cteri stics deter mined by [employer] [facility]. It has not been clear ed or appro moriah by the Food and Drug Admin istra tion. Not Available [facility] ([facility]) [address] [facility], [place], [address], 11/15/2023 16:05:41 11/02/19 24 11/04/2023 T-ALYSSA L ACTIV ATION , CD8 SUBSE TS abs.cd3+cd25 + lymphs 262 /uL 79-535 This test was devel oped and its perfo rmanc e katia cteri stics deter mined by [facility]. It has not been clear ed or appro moriah by the Food and Drug Admin istra tion. Not Available [facility] ([facility]) [address] [facility], [place], [address], 11/15/2023 16:05:41 11/02/19 24 11/04/2023 T-ALYSSA L ACTIV ATION , CD8 SUBSE TS % cd8+cd38+ lymphs 8.1 % 0.0-17 .7 This test was devel oped and its perfo rmanc e katia cteri stics deter mined by [facility]. It has not been clear ed or appro moriah by the Food and Drug Admin istra tion. Not Available [facility] ([facility]) [address] [facility], [place], [address], 11/15/2023 16:05:41 11/02/19 24 11/04/2023 T-ALYSSA L ACTIV ATION , CD8 SUBSE TS abs.cd8+cd38 + lymphs 113 /uL 0-381 This test was devel oped and its perfo rmanc e katia cteri stics deter mined by [employer]. It has not been clear ed or appro moriah by the Food and Drug Admin istra tion. Not Available [facility] ([facility]) [address] [place], [address], 11/15/2023 16:05:41 11/02/19 24 11/02/2023 HCV FIBRO SURE methodology: Commen t The dilcia estefania teste d are perfo rmed by [employer] Sure- Speci fic metho ds. Not inten ded for use with other diagn ostic consi derat ions. Not Available [facility] ([facility]) [address] [place], [address], 11/15/2023 16:05:41 11/02/19 24 11/02/2023 HCV FIBRO SURE interpretati ons: Commen t Quant itati ve resul ts of 6 bioch emica l tests are dilcia zed using a compu tatio nal algor ithm to provi de a quant itati ve surro gate marke r (0.0- 1.0) for liver fibro sis (META VIR F0-F4 ) and for necro infla mmato ry activ ity (META VIR A0-A3 ). Not Available [facility] ([facility]) [address] [place], [address], 11/15/2023 16:05:41 11/02/19 24 11/02/2023 HCV FIBRO SURE fibrosis scoring: Commen t <=0.2 1 = Stage F0 - No fibro sis 0.21 - 0.27 = Stage F0 - F1 0.27 - 0.31 = Stage F1 - Paulette l fibro sis 0.31 - 0.48 = Stage F1 - F2 0.48 - 0.58 = Stage F2 - Bridg ing fibro sis with few septa 0.58 - 0.72 = Stage F3 - Bridg ing fibro sis with many septa 0.72 - 0.74 = Stage F3 - F4 >0.74 = Stage F4 - Cirrh osis Not Available [facility] ([facility]) [address] [place], [address], 11/15/2023 16:05:41 11/02/19 24 11/02/2023 HCV FIBRO SURE necroinflamm activity scoring: Commen t <0.17 = Grade A0 - No Activ ity 0.17 - 0.29 = Grade A0 - A1 0.29 - 0.36 = Grade A1 - Minim al activ ity 0.36 - 0.52 = Grade A1 - A2 0.52 - 0.60 = Grade A2 - Moder ate activ ity 0.60 - 0.62 = Grade A2 - A3 >0.62 = Grade A3 - Sever e activ ity Not Available [facility] ([facility]) [address] [facility], [place], [address], 11/15/2023 16:05:41 11/02/19 24 11/02/2023 HCV FIBRO SURE comment: Commen t This test was devel oped and its perfo rmanc e katia cteri stics deter mined by [employer]. It has not been clear ed or appro moriah by the Food and Drug Admin istra tion. The FDA has deter mined that such clear ance or appro sarah is not neces haley. For quest aaron osorio this repor t mary patricia ct custo noemi servi ce at [phone]. Not Available [facility] ([facility]) [address] [facility], [place], [address], 11/15/2023 16:05:41 11/02/19 24 11/06/2023 HCV FIBRO SURE alpha 2-macroglobu renay, qn 254 mg/dL 110-27 6 Not Available [facility] ([facility]) [address] [facility], [place], [address], 11/15/2023 16:05:41 11/02/19 24 11/06/2023 HCV FIBRO SURE haptoglobin <10 mg/dL 37-355 below low normal Not Available [facility] ([facility]) [address] [place], [address], 11/15/2023 16:05:41 11/02/19 24 11/06/2023 HCV FIBRO SURE apolipoprote in A-1 180 mg/dL 116-20 9 Not Available [facility] ([facility]) [address] [place], [address], 11/15/2023 16:05:41 11/02/19 24 11/06/2023 HCV FIBRO SURE bilirubin, total <0.1 mg/dL 0.0-1. 2 Not Available [facility] ([facility]) [address] [place], [address], 11/15/2023 16:05:41 11/02/19 24 11/06/2023 HCV FIBRO SURE GGT 34 IU/L 0-60 Not Available [facility] ([facility]) [address] [place], [address], 11/15/2023 16:05:41 11/02/19 24 11/06/2023 HCV FIBRO SURE ALT (SGPT) p5p 26 IU/L 0-40 Not Available [facility] ([facility]) [address] [place], [address], 11/15/2023 16:05:41 11/02/19 24 11/07/2023 HCV FIBRO SURE fibrosis score 0.31 0.00-0 .21 above high normal Not Available [facility] ([facility]) [address] [place], [address], 11/15/2023 16:05:41 11/02/19 24 11/07/2023 HCV FIBRO SURE fibrosis stage Commen t F1 - Paulette l fibro sis Not Available [facility] ([facility]) [address] [place], [address], 11/15/2023 16:05:41 11/02/19 24 11/07/2023 HCV FIBRO SURE necroinflamm at activity score 0.12 0.00-0 .17 Not Available [facility] ([facility]) [address] [facility], [place], [address], 11/15/2023 16:05:41 11/02/19 24 11/07/2023 HCV FIBRO SURE necroinflamm at activity grade A0-No activi ty Not Available [facility] ([facility]) [address] [facility], [place], [address], 11/15/2023 16:05:41 11/02/19 24 11/07/2023 HCV FIBRO SURE limitations: Commen t The negat alphonse predi ctive value of a Fibro test score <0.31 (abse nce of clini cachorro signi fican t fibro sis) was 85% when rochelle red to liver biops y in 1,270 HCV infec bernice patie nts with a 38% preva lence of signi fican t liver fibro sis (F2, 3 or 4). The posit alphonse predi ctive value of a Fibro - test score >0.48 (F2, 3, 4) was 61% in that same patie nt cohor t. HCV Fibro SURE is not recom jorgito d in patie nts with Gilbe rt Disea se, acute hemol ysis (e.g. HCV ribav irin thera py media bernice hemol ysis) acute hepa- titis of the liver , extra -hepa tic sondra stasi s, trans plant patie nts, and/o r renal insuf ficie ncy patie nts. Any of these clini verna situa tions may lead to inacc urate quant itati ve predi ction s of fibro sis and necro infla mmato ry activ ity in the liver . Not Available [facility] ([facility]) [address] [facility], [place], [address], 11/15/2023 16:05:41 11/02/19 24 11/04/2023 LIPID PANEL cholesterol, total 217 mg/dL 100-19 9 above high normal Not Available [facility] ([facility]) [address] [facility], [place], [address], 11/15/2023 16:05:42 11/02/19 24 11/04/2023 LIPID PANEL triglyceride s 123 mg/dL 0-149 normal Not Available [facility] ([facility]) [address] [place], [address], 11/15/2023 16:05:42 11/02/19 24 11/04/2023 LIPID PANEL HDL cholesterol 74 mg/dL >39 normal Not Available [facility] ([facility]) [address] [place], [address], 11/15/2023 16:05:42 11/02/19 24 11/04/2023 LIPID PANEL VLDL cholesterol verna 21 mg/dL 5-40 Not Available [facility] ([facility]) [address] [place], [address], 11/15/2023 16:05:42 11/02/19 24 11/04/2023 LIPID PANEL LDL chol calc ([facility]) 122 mg/dL 0-99 above high normal Not Available [facility] ([facility]) [address] [place], [address], 11/15/2023 16:05:42 11/02/19 24 11/04/2023 LIPID PANEL LDL calc comment: COMEDIAN Not Available [facility] ([facility]) [address] [place], [address], 11/15/2023 16:05:42 11/02/19 24 11/04/2023 ELECT ROLYT E PANEL sodium 143 mmol/ L 134-14 4 normal Not Available [facility] ([facility]) [address] [place], [address], 11/15/2023 16:05:42 11/02/19 24 11/04/2023 ELECT ROLYT E PANEL potassium 3.6 mmol/ L 3.5-5. 2 normal Not Available [facility] ([facility]) [address] [place], [address], 11/15/2023 16:05:42 08/05/20 24 11/04/2023 ELECT ROLYT E PANEL chloride 106 mmol/ L 96-106 normal Not Available [facility] ([facility]) [address] [facility], [place], [address], 11/15/2023 16:05:42 11/02/19 24 11/04/2023 ELECT ROLYT E PANEL carbon dioxide, total 25 mmol/ L 20-29 normal Not Available [facility] ([facility]) [address] [facility], [place], [address], 11/15/2023 16:05:42 11/02/19 24 11/02/2023 HBV REAL- TIME PCR, QUANT test information: Commen t The repor table range for this assay is 10 IU/mL to 1 kanika on IU/mL . Not Available [facility] ([facility]) [address] [facility], [place], [address], 11/15/2023 16:05:43 11/02/19 24 11/05/2023 HBV REAL- TIME PCR, QUANT HBV IU/mL HBV DNA not detect ed IU/mL Not Available [facility] ([facility]) [address] [place], [address], 11/15/2023 16:05:43 11/02/19 24 11/05/2023 HBV REAL- TIME PCR, QUANT log10 HBV IU/mL COMMEN T log10 _IU/m L Unabl e to calcu late resul t since non-n umeri c resul t obtai idalia for compo nent test. Not Available [facility] ([facility]) [address] [facility], [place], [address], 11/15/2023 16:05:43 11/02/19 24 11/05/2023 RNA, PCR(N ONGRA PH)RF X/GEN OPRI HIV-1 RNA by PCR <20 copie s/mL HIV-1 RNA not detec bernice The repor table range for this assay is 20 to 10,00 0,000 copie s HIV-1 RNA/m L. Not Available [facility] ([facility]) [address] [facility], [place], [address], 11/15/2023 16:05:43 11/02/19 24 11/05/2023 RNA, PCR(N ONGRA PH)RF X/GEN OPRI log10 HIV-1 RNA COMMEN T log10 copy/ mL Unabl e to calcu late resul t since non-n umeri c resul t obtai idalia for compo nent test. Not Available [facility] ([facility]) [address] [facility], [place], [address], 11/15/2023 16:05:43 11/02/19 24 11/05/2023 RNA, PCR(N ONGRA PH)RF X/GEN OPRI HIV genosure prime(R) COMMEN T Not indic ated Not Available [facility] ([facility]) [address] [place], [address], 11/15/2023 16:05:43 11/02/19 24 11/04/2023 GLOM FILT RATE, ESTIM ATED creatinine 1.08 mg/dL 0.57-1 .00 above high normal Not Available [facility] ([facility]) [address] [place], [address], 11/15/2023 16:05:44 11/02/19 24 11/04/2023 GLOM FILT RATE, ESTIM ATED eGFR 58 mL/mi n/1.7 3 >59 below low normal Not Available [facility] ([facility]) [address] [place], [address], 11/15/2023 16:05:44 11/02/19 24 11/06/2023 CHLAM YDIA/ GC AMPLI FICAT ION chlamydia trachomatis, SAFIA COMMEN T Pleas e refer to the follo wing speci men for addit ional lab resul ts. SPEC# [id number] 0 Not Available [facility] ([facility]) [address] [place], [address], 11/15/2023 16:05:44 11/02/19 24 11/06/2023 CHLAM YDIA/ GC AMPLI FICAT ION neisseria gonorrhoeae, SAFIA COMMEN T Pleas e refer to the follo wing speci men for addit ional lab resul ts. SPEC# [id number] 0 Not Available [facility] ([facility]) [address] [facility], [place], [address], 11/15/2023 16:05:44 11/02/19 24 11/11/2023 THYRO ID STIMU LATIN G HORMO NE TSH-icma 0.92 uu/mL Refer ence Range : Non-P regna nt Adult 0.450 -4.50 0 Pregn sarah First Trime ster 0.100 -4.00 0 Secon d Trime ster 0.200 -4.00 0 Third Trime ster 0.300 -4.50 0 Not Available [facility] [address] [place] [address], [address], 11/15/2023 16:05:45 11/02/19 24 11/03/2023 HEMOG LOBIN A1C hemoglobin A1C 6.4 % 4.8-5. 6 above high normal Predi abete s: 5.7 - 6.4 Diabe estefania: >6.4 Glyce magdiel contr ol for adult s with diabe estefania: <7.0 Not Available [facility] ([facility]) [address] [facility], [place], [address], 11/15/2023 16:05:45 11/02/19 24 11/04/2023 ALBUM IN albumin 4.4 g/dL 3.9-4. 9 normal Not Available [facility] ([facility]) [address] [facility], [place], [address], 11/15/2023 16:05:45 11/02/19 24 11/04/2023 BILIR UBIN, TOTAL bilirubin, total <0.2 mg/dL 0.0-1. 2 Not Available [facility] ([facility]) [address] [facility], [place], [address], 11/15/2023 16:05:46 11/02/19 24 11/04/2023 AST (SGOT ) AST (SGOT) 21 IU/L 0-40 normal Not Available [facility] ([facility]) [address] [facility], [place], [address], 11/15/2023 16:05:46 11/02/19 24 11/04/2023 ALT (SGPT ) ALT (SGPT) 22 IU/L 0-32 normal Not Available [facility] ([facility]) [address] [facility], [place], [address], 11/15/2023 16:05:47 11/02/19 24 11/06/[address] PROBL EM request problem COMMEN T Pleas e refer to the follo wing speci men for addit ional lab resul ts. TEST: [id number] Chlam ydia trach omati s, SAFIA Panel : [id number] [phone] [id number] [phone] Neiss eria gonor rhoea e, SAFIA Panel : [id number] SPEC# [id number] 0 Not Available [facility] ([facility]) [address] [facility], [place], [address], 11/15/2023 16:05:47 04/20/19 US, liver No observ ation record ed. [email or web address] [facility] [address], [address], 04/20/2023 23:10:49 12/30/19 US, abdom en No observ ation record ed. [email or web address] Not Available 12/29 16:21:06 12/30/1912/29/2023 US, abdom en No observ ation record ed. [email or web address] [facility] [address], [address], 02/15/2024 15:11:05 Result Notes None recorded. Problems Name Problem SNOMED Code Status Onset Date Resolution Date Notes Provider Name and Address Organization Details Recorded Time Type B viral hepatiti s 65870936 Active 2023 Erin Syed MD [address] [facility] [place], [address] , ELIO SYED MD [facility] 4 11:45:29 Human immunode ficiency virus infectio n 11995385 Active 2023 [facility] [address] [facility] [place], [address] , ELIO SYED MD [facility] 4 11:47:51 Gastroes ophageal reflux disease without esophagi tis 231616632 Active 2016 Gastro-e sophagea l reflux disease without esophagi tis; snomedde scriptio n: Gastroes ophageal reflux disease; Report Immunity to Registry : Yes; Not Available [facility] 4 06:58:21 Chronic kidney disease 921301020 Active 2015 Chronic kidney disease, unspecif ied; snomedde scriptio n: Chronic renal impairme nt; Report Immunity to Registry : Yes; Notes: ckd GFR=55 2015; 49 2018; Not Available [facility] 4 06:58:21 Asthma 418003309 Active 1962 Asthma; Report Immunity to Registry : Yes; Not Available [facility] 4 06:58:22 Chronic renal impairme nt Active 2015 Chronic renal impairme nt; snomedde scriptio n: Chronic renal impairme nt; Report Immunity to Registry : Yes; Notes: ckd GFR=55 2015; 49 2018; Not Available [facility] 4 06:58:22 History of tubal ligation 866646873 Active 1994 H/O: tubal ligation ; snomedde scriptio n: H/O: tubal ligation ; Report Immunity to Registry : Yes; Tubal ligation status; snomedde scriptio n: H/O: tubal ligation ; Report Immunity to Registry : Yes; Not Available [facility] 4 06:58:22 Gastroes ophageal reflux disease 198774797 Active 2016 Gastroes ophageal reflux disease; snomedde scriptio n: Gastroes ophageal reflux disease; Report Immunity to Registry : Yes; Not Available [facility] 4 06:58:22 Nasal congesti on 92691993 Active 1993 Nasal congesti on; snomedde scriptio n: Congesti on of nasal sinus; Report Immunity to Registry : Yes; Not Available [facility] 4 06:58:[address] Concept Active 2021 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; snomedde scriptio n: 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; Report Immunity to Registry : Yes; Notes: 05/2021; Not Available [facility] 4 06:58:22 Mixed hyperlip idemia 306836511 Active 2010 Mixed hyperlip idemia; snomedde scriptio n: Mixed hyperlip idemia; Report Immunity to Registry : Yes; Not Available [facility] 4 06:58:23 Genital herpes simplex 16769298 Active 2010 Genital herpes simplex; snomedde scriptio n: Genital herpes simplex; Report Immunity to Registry : Yes; ReasonDa te: 02/05/20; ; Start Date : 02/05/20 Genit al herpes; snomedde scriptio n: Genital herpes simplex; Report Immunity to Registry : Yes; ReasonDa te: 02/05/20 19; ; Start Date : 02/05/20 Genit al herpes simplex; snomedde scriptio n: Genital herpes simplex; Report Immunity to Registry : Yes; Notes: HSV 1 and 2 pos serology ; Genital herpes, unspecif ied; snomedde scriptio n: Genital herpes simplex; Report Immunity to Registry : Yes; Notes: HSV 1 and 2 pos serology ; Not Available [facility] 4 06:58:23 Noninfec tious gastroen teritis 18486622 Active 2005 Noninfec tive gastroen teritis and colitis, unspecif ied; snomedde scriptio n: Chronic diarrhea ; Report Immunity to Registry : Yes; Notes: chronic diarrhea 2005; Not Available [facility] 4 06:58:23 Noninfec tious colitis 46844423 Active 2005 Noninfec tive gastroen teritis and colitis, unspecif ied; snomedde scriptio n: Chronic diarrhea ; Report Immunity to Registry : Yes; Notes: chronic diarrhea 2005; Not Available [facility] 4 06:58:23 Hyperlip idemia 36303000 Completed 201805/20/2023 Hyperlip idemia; snomedde scriptio n: Hyperlip idemia; Report Immunity to Registry : Yes; ReasonDa te: 02/05/20 19; Other and unspecif ied hyperlip idemia; snomedde scriptio n: Hyperlip idemia; Report Immunity to Registry : Yes; ReasonDa te: 02/05/20 19; Erin Syed MD [address] [place] [address], [phone] [facility] ERIN SYED MD [facility] 4 11:08:44 Congesti on of nasal sinus 73469122 Active 1993 Congesti on of nasal sinus; snomedde scriptio n: Congesti on of nasal sinus; Report Immunity to Registry : Yes; Not Available [facility] 4 06:58:23 Chronic diarrhea 501868058 Active 2005 Chronic diarrhea ; snomedde scriptio n: Chronic diarrhea ; Report Immunity to Registry : Yes; Notes: chronic diarrhea 2005; Not Available [facility] 4 06:58:23 Hyperten sive disorder 76970152 Active 2010 Hyperten sive disorder ; snomedde scriptio n: Hyperten sive disorder ; Report Immunity to Registry : Yes; Not Available [facility] 4 06:58:23 Essentia l hyperten israel 16152735 Active 2010 Unspecif ied essentia l hyperten israel; snomedde scriptio n: Hyperten sive disorder ; Report Immunity to Registry : Yes; Not Available [facility] 4 06:58:24 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; snomedde scriptio n: 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; Report Immunity to Registry : Yes; Notes: 05/2021; Not Available [facility] 4 06:58:24 Chronic type B viral hepatiti s 82317728 Active 2005 Chronic type B viral hepatiti s; snomedde scriptio n: Chronic type B viral hepatiti s; Report Immunity to Registry : Yes; Notes: 08/02 HBV S AG POSITIVE ; HBV vL undetect ed 09/2012; HBV VL =32 2017; nondetec bernice 2018; Viral hepatiti s B without mention of hepatic coma, chronic, without mention of hepatiti s delta; snomedde scriptio n: Chronic type B viral hepatiti s; Report Immunity to Registry : Yes; Notes: 08/02 HBV S AG POSITIVE ; HBV vL undetect ed 09/2012; HBV VL =32 2017; nondetec bernice 2018; Not Available [facility] 4 06:58:24 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; snomedde scriptio n: Lipodyst rophy; Report Immunity to Registry : Yes; Not Available [facility] 4 06:58:24 Steatoti c liver disease 948401352 Active 2023 Erin Syed MD [address] [place], [place] [address], [address] , ELIO SYED MD [facility] 4 11:08:37 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 Erin Syed MD [address] [place] [address] [place], [address] , ELIO SYED MD [facility] 4 11:08:41 Hyperlip idemia 52647670 Active 2023 Hyperlip idemia; snomedde scriptio n: Hyperlip idemia; Report Immunity to Registry : Yes; ReasonDa te: 02/05/20 19; Other and unspecif ied hyperlip idemia; snomedde scriptio n: Hyperlip idemia; Report Immunity to Registry : Yes; ReasonDa te: 02/05/20 19; Erin Syed MD [address] [place] [address] [place], [address] , ELIO SYED MD [facility] 4 11:08:44 Problem Notes None recorded. Procedures Surgical History None recorded. Imaging Results Imaging Date Name Status LastModified by Organiz ation Details LastModified Time 04/20/2023 US, liver completed [email or web address] [facility] [address], [address], 04/20/2023 23:10:49 12/30/2023 US, abdomen completed [email or web address] Information n ot available 12/30/2023 16:21:06 12/29/2023 US, abdomen completed [facility] [address], [address], 02/15/2024 15:11:05 Procedure Notes None recorded. Medical Equipment None Reported. Medications Name Sig Start Date Stop Date Status Note LastModified by Organization Details LastModified Time fluconazo le 100 mg tablet 100 mg Quantity : 14; Duration : 14; 0 refill(s ) 07/05 completed Frequenc y: qd; Duration : 14; VACCINE_ IND: no; SU_FULL_ NAME: Erin barnard; Not Available Not Available Not Available hydralazi ne 10 mg tablet active Not Available Not Available Not Available doxycycli ne hyclate 100 mg capsule hyclate 100 mg Quantity : 28; Duration : 14; 0 refill(s ) 01/03 completed Frequenc y: bid; Duration : 14; VACCINE_ IND: no; SU_FULL_ NAME: Erin barnard; Not Available Not Available Not Available Pneumovax -23 25 mcg/0.5 mL injection solution - Quantity : ; Duration : 30; 0 refill(s ) 12/10 completed Duration : 30; VACCINE_ IND: yes; VACCINE_ NAME: pneumoco ccal polysacc haride PPV23; SU_FULL_ NAME: Erin Fink; VIS_DATE : 04:00:00 .0; Not Available Not Available Not Available azithromy shawn 250 mg tablet 500mg po qd x1, then 250 mg po qd x 5 days 07/24 completed VACCINE_ IND: no; SU_FULL_ NAME: Erin barnard; Not Available Not Available Not Available valacyclo vir 1 gram tablet TAB 1GM; Quantity : 28; Duration : 28; 0 refill(s ) 02/04 completed Duration : 28; VACCINE_ IND: no; Not Available Not Available Not Available spironola ctone 25 mg-hydroc hlorothia zide 25 mg tablet TAB ; Quantity : 28; Duration : 28; 0 refill(s ) active Not Available Not Available No t Available metoprolo l succinate ER 200 mg tablet,ex tended release 24 hr TAB 200MG ER; Quantity : 30; Duration : 30; 0 refill(s ) 07/29 completed Duration : 30; VACCINE_ IND: no; Not Available Not Available Not Available Levaquin 750 mg tablet 1 tab po qd 09/04 completed VACCINE_ IND: no; SU_FULL_ NAME: Erin barnard; Not Available Not Available Not Available metoprolo l succinate ER 100 mg tablet,ex tended release 24 hr SUC TAB 100MG ER; Quantity : 28; Duration : 28; 0 refill(s ) active Not Available Not Available No t Available Advair Diskus 100 mcg-50 mcg/dose powder for inhalatio n 0 Quantity : 60; Duration : 30; 0 refill(s ) 07/19 completed Duration : 30; VACCINE_ IND: no; Not Available Not Available Not Available simvastat in 80 mg tablet TAB 80MG; Quantity : 28; Duration : 28; 0 refill(s ) active Not Available Not Available No t Available valacyclo vir 500 mg tablet TAKE 1 TABLET BY MOUTH DAILY. active Not Available Not Available No t Available omeprazol e 40 mg capsule,d elayed release 1 ORAL EVERY DAY 09/23 completed Duration : 30; VACCINE_ IND: no; SU_FULL_ NAME: Erin barnard; Not Available Not Available Not Available Christopher n-DM 10 mg-100 mg/5 mL oral syrup 10 mg-100 mg/5 mL Quantity : 1; 0 refill(s ) 11/11 completed Frequenc y: qid; VACCINE_ IND: no; SU_FULL_ NAME: Erin barnard; Not Available Not Available Not Available simvastat in 40 mg tablet TAB 40MG; Quantity : 90; Duration : 90; 0 refill(s ) 07/29 completed Duration : 90; VACCINE_ IND: no; Not Available Not Available Not Available nifedipin e ER 60 mg tablet,ex tended release 24 hr TAB 60MG ER; Quantity : 28; Duration : 28; 0 refill(s ) 08/19 completed Duration : 28; VACCINE_ IND: no; Not Available Not Available Not Available doxycycli ne monohydra te 100 mg capsule TAKE 1 CAPSULE 07/22 completed Duration : 7; VACCINE_ IND: no; SU_FULL_ NAME: Erin barnard; Not Available Not Available Not Available nystatin 100,000 unit/gram topical cream apply of affected skin twice a day 07/05 completed Duration : 1; VACCINE_ IND: no; SU_FULL_ NAME: Erin barnard; Not Available Not Available Not Available lisinopri l 10 mg tablet TAB 10MG; Quantity : 90; Duration : 90; 0 refill(s ) 07/29 completed Duration : 90; VACCINE_ IND: no; Not Available Not Available Not Available Advair Diskus 250 mcg-50 mcg/dose powder for inhalatio n 0 Quantity : 60; Duration : 30; 0 refill(s ) 07/24 completed Duration : 30; VACCINE_ IND: no; Not Available Not Available Not Available mupirocin calcium 2 % topical cream apply in affected area bid 01/03 completed Duration : 10; VACCINE_ IND: no; SU_FULL_ NAME: Erin barnard; Not Available Not Available Not Available omeprazol e 20 mg capsule,d elayed release 20 Quantity : 28; Duration : 28; 0 refill(s ) active Not Available Not Available No t Available Macrodant in 100 mg capsule macrocry stals 100 mg Quantity : 14; Duration : 7; 0 refill(s ) 11/29 completed Frequenc y: bid; Duration : 7; VACCINE_ IND: no; SU_FULL_ NAME: Erin Lawrence evon; Not Available Not Available Not Available monteluka st 10 mg tablet TAB 10MG; Quantity : 28; Duration : 28; 0 refill(s ) active Not Available Not Available No t Available mupirocin 2 % topical ointment apply in affected skin area bid as needed 07/22 completed Duration : 7; VACCINE_ IND: no; SU_FULL_ NAME: Erin Lawrence evon; Not Available Not Available Not Available albuterol sulfate 2 mg tablet 2 mg Quantity : ; 0 refill(s ) 07/24 completed VACCINE_ IND: no; Not Available Not Available Not Available lisinopri l 40 mg tablet TAB 40MG; Quantity : 28; Duration : 28; 0 refill(s ) active Not Available Not Available No t Available fluticaso ne propionat e 50 mcg/actua tion nasal spray,narciso pension 50 Quantity : 16; Duration : 30; 0 refill(s ) 07/24 completed Duration : 30; VACCINE_ IND: no; Not Available Not Available Not Available loratadin e 10 mg tablet TAKE 1 TABLET BY MOUTH DAILY. active Not Available Not Available No t Available Ventolin HFA 90 mcg/actua tion aerosol inhaler 108 Quantity : 18; Duration : 16; 0 refill(s ) 07/29 completed Duration : 16; VACCINE_ IND: no; Not Available Not Available Not Available Benadryl 25 mg capsule 25 mg Quantity : 60; 0 refill(s ) 11/04 completed Frequenc y: qhs; VACCINE_ IND: no; SU_FULL_ NAME: Erin Lawrence evon; Not Available Not Available Not Available Bactrim DS 800 mg-160 mg tablet 800 mg-160 mg Quantity : 14; 0 refill(s ) 02/01 completed Frequenc y: bid; VACCINE_ IND: no; SU_FULL_ NAME: Erin Lawrence evon; Not Available Not Available Not Available Benadryl Allergy 25 mg tablet 1-2 tabs po qd for itchines s 07/05 completed Duration : 30; VACCINE_ IND: no; SU_FULL_ NAME: Erin barnard; Not Available Not Available Not Available Pneumovax -23 25 mcg/0.5 mL injection syringe - Quantity : ; 0 refill(s ) 07/29 completed VACCINE_ IND: yes; VACCINE_ NAME: pneumoco ccal polysacc haride PPV23; SU_FULL_ NAME: Erin barnard; Not Available Not Available Not Available azithromy shawn 500 mg tablet Take 1 tablet every day by oral route for 5 days. active Not Available Not Available No t Available loratadin e 10 mg Quantity : 30; Duration : 30; 3 refill(s ) 07/05 completed Frequenc y: qd; Duration : 30; VACCINE_ IND: no; SU_FULL_ NAME: Erin barnard; Not Available Not Available Not Available Lipitor Quantity : ; 0 refill(s ) 09/04 completed VACCINE_ IND: no; Not Available Not Available Not Available lisinopri l Quantity : ; 0 refill(s ) 09/04 completed VACCINE_ IND: no; Not Available Not Available Not Available Zyrtec-D 5 mg-120 mg Quantity : 30; 0 refill(s ) 12/17 completed Frequenc y: qd; VACCINE_ IND: no; SU_FULL_ NAME: Erin barnard; Not Available Not Available Not Available efavirenz 600 mg-emtric itabine 200 mg-tenofo vir disoprox 300 mg tablet Take 1 tablet every day by oral route for 90 days. active Not Available Not Available No t Available Symbicort 160 mcg-4.5 mcg/actua tion HFA aerosol inhaler 0 Quantity : 10.2; Duration : 30; 0 refill(s ) 07/19 completed Duration : 30; VACCINE_ IND: no; Not Available Not Available Not Available Ashley Gallardo-C-Y-W-1 35-Dip (PF) 10 mcg-5 mcg/0.5 mL IM kit (2 vials) - Quantity : ; 0 refill(s ) 02/04 completed VACCINE_ IND: yes; VACCINE_ NAME: Meningoc occal MCV4O; SU_FULL_ NAME: Erin barnard; VIS_DATE : 19:18:25 .0; Not Available Not Available Not Available Prevnar 13 (PF) 0.5 mL intramusc ular syringe - Quantity : ; Duration : 30; 0 refill(s ) 04/17 completed Duration : 30; VACCINE_ IND: yes; VACCINE_ NAME: Pneumoco ccal conjugat e PCV 13; SU_FULL_ NAME: Eirn Fink; Not Available Not Available Not Available Flulaval 45 mcg (15 mcg x 3)/0.5 mL intramusc ular suspensio n - Quantity : ; Duration : 30; 0 refill(s ) 12/10 completed Duration : 30; VACCINE_ IND: yes; VACCINE_ NAME: Influenz a, seasonal , injectab le; SU_FULL_ NAME: Erin Fink; VIS_DATE : 04:00:00 .0; Not Available Not Available Not Available Flulaval Quantity : ; Duration : 30; 0 refill(s ) 02/06 completed Duration : 30; VACCINE_ IND: yes; SU_FULL_ NAME: Erin Fink; VIS_DATE : 04:00:00 .0; Not Available Not Available Not Available Flulaval 45 mcg (15 mcg x 3)/0.5 mL intramusc ular suspensio n trivalen t Quantity : ; Duration : 30; 0 refill(s ) 01/16 completed Duration : 30; VACCINE_ IND: yes; VACCINE_ NAME: Influenz a, seasonal , injectab le; SU_FULL_ NAME: Erin Fink; Not Available Not Available Not Available Fluvirin 45 mcg (15 mcg x 3)/0.5 mL intramusc ular suspensio n trivalen t Quantity : ; 0 refill(s ) 07/24 completed VACCINE_ IND: yes; VACCINE_ NAME: Influenz a, seasonal , injectab le; SU_FULL_ NAME: Erin barnard; Not Available Not Available Not Available Fluvirin 45 mcg (15 mcg x 3)/0.5 mL intramusc ular suspensio n trivalen t Quantity : ; 0 refill(s ) 07/29 completed VACCINE_ IND: yes; VACCINE_ NAME: Influenz a, seasonal , injectab le; SU_FULL_ NAME: Erin barnard; Not Available Not Available Not Available Mytesi 125 mg tablet,de layed release TAB 125MG; Quantity : 60; Duration : 30; 0 refill(s ) 11/29 completed Duration : 30; VACCINE_ IND: no; Not Available Not Available Not Available Shingrix (PF) 50 mcg/0.5 mL intramusc ular suspensio n, kit adjuvant ed Quantity : 1; Duration : 1; 1 refill(s ) 10/04 completed Frequenc y: x1; Duration : 1; VACCINE_ IND: no; VACCINE_ NAME: zoster recombin ant; SU_FULL_ NAME: Erin barnard; Not Available Not Available Not Available Afluria Quad 60 mcg (15 mcg x 4)/0.5 mL intramusc ular susp. quadriva lent Quantity : ; 0 refill(s ) 2020 active VACCINE_ IND: yes; VACCINE_ DOCUMENT _DATE: 00:00:00 ; VACCINE_ DOCUMENT _NAME: Influenz a (Flu) (Inactiv ated or Recombin ant): 11/02/20; VACCINE_ NAME: influenz a, injectab le, quadriva lent; SU_FULL_ NAME: Erin barnard; VIS_DATE : 18:52:51 .0; Not Available Not Available Not Available Vitals None Recorded Social History None recorded. Functional Status None recorded. Mental Status None recorded. Family History Nothing Reported Notes:Hypertension, Response Property: Yes; Medical History No medical history recorded. Gynecological HistoryNo gynecological history recorded. Obstetrics History GPAL:G 0 P 0 0 0 0 Immunizations Vaccine Type Date Status Note Provider Nam e and Address Organization Details Recorded Time Influenza, split virus, quadrivalent, preservative completed Not Available [facility] 05/20/2023 06:54:39 Past Encounters Encounter ID Performer Location Encounter Start Date Encounter Closed Date Diagnosis/Indication Diagnosis SNOMED-CT Code Diagnosis ICD10 Code Diagnosis Note [id number] Erin Syed MD Main Office [address] [place] [address], [place] [address] 12/22/2022 11:21:30 12/22/2022 14:37:08 Human immunodeficiency virus infection 63665923 B20 HIV/HBV. on Atripla 1 tab po qhs. wants to keep current regimen. strict compliance with HIV meds to keep suppressio n, prevent resistance and prevent transmissi on. labs 12/2022: CBC ALt AST HIV vL,CD4, HBV VL, creatinine , RPR. plan of care reviewed. questions and concerns addressed Chronic ki dney disease 176637553 N18.9 I have recommende d a s witch of regimen to a TAF such as Biktarvy free option which would cover HBV/HIV, and would be associated with decreased kidney and liver toxicity.h ydrationav oid NSAIDS Type B vir al hepatitis 43345299 B19.10 on Atripla which c over both HIV/HBV. HBV VL DNA ordered. Hepatitis D ab ordered. [id number] Erin Syed MD Main Office [address] [facility] [place] [address] 04/06/2023 11:18:48 04/06/2023 12:50:52 Human immunodeficiency virus infection 59492083 B20 HIV/HBV. on Atripla 1 tab po qhs. wants to keep current regimen. Aware of new regimens. declines switch right now. aware of TDF free options. aware of CKD hx, and advantage of TDF free options.im portance of safety labs and compliance with instructio ns and safety assessment s reviewedst rict compliance with HIV meds to keep suppressio n, prevent resistance and prevent transmissi on.plan of care reviewed. questions and concerns addressed Type B vir al hepatitis 69593518 B19.10 on Atripla which c over both HIV/HBV. HBV VL DNA ordered. Hepatitis D ab ordered. HBV S AG POSITIVE; HBV vL undetected 09/2012; HBV VL =32 2017; nondetecte d 2019routin e screen U/s abd HCC screen [id number] Erin Syed MD Main Office [address] [facility] [place] [address] 07/06/2023 09:46:39 07/06/2023 10:11:13 Human immunodeficiency virus infection 82140581 B20 HIV/HBV. on Atripla 1 tab po qhs. wants to keep current regimen. Aware of new regimens. declines switch right now. aware of TDF free options. aware of CKD hx, and advantage of TDF free options.im portance of safety labs and compliance with instructio ns and safety assessment s reviewedst rict compliance with HIV meds to keep suppressio n, prevent resistance and prevent transmissi on.plan of care reviewed. questions and concerns addressed Type B vir al hepatitis 15514152 B19.10 on Atripla which c over both HIV/HBV. HBV VL DNA ordered. Hepatitis D ab ordered. HBV S AG POSITIVE; HBV vL undetected 09/2012; HBV VL =32 2017; nondetecte d 2019u/s abd has been ordered; she will call to reschedule appointmen t Pharyngitis [id number] J0 2.9 cough, malaise. yellow phlegm. to call if not improvedAz ithromycin for 5 days.to call if worsening or nonresolvi ngno allergies to antibiotic s [id number] Erin Syed MD Main Office [address] [place] [phone] 10/06/2023 09:33:47 10/06/2023 10:44:39 Human immunodeficiency virus infection 25747265 B20 HIV/HBV. on Atripla 1 tab po qhs. wants to keep current regimen. Aware of new regimens. declines switch right now. aware of TDF free options. aware of CKD hx, and advantage of TDF free options.im portance of safety labs and compliance with instructio ns and safety assessment s reviewedst rict compliance with HIV meds to keep suppressio n, prevent resistance and prevent transmissi on.plan of care reviewed. questions and concerns addressedl abs Type B vir al hepatitis 64411675 B19.10 on Atripla which c over both HIV/HBV. HBV VL DNA ordered. Hepatitis D ab ordered. HBV S AG POSITIVE; HBV vL undetected 09/2012; HBV VL =32 2017; nondetecte d 2019u/s abd has been ordered; she will call to reschedule appointmen t Hyperlipidemia 12861226 E78.5 continue med tx. Adult heal th examination 993700463 Z00.00 labs ordered. [id number] Erin Syed MD Main Office [address] [place] [address] 12/30/2023 10:25:02 12/30/2023 12:10:58 Human immunodeficiency virus infection 27157377 B20 HIV/HBV. on Atripla 1 tab po qhs. wants to keep current regimen. Aware of new regimens. declines switch right now. aware of TDF free options. aware of CKD hx, and advantage of TDF free options.im portance of safety labs and compliance with instructio ns and safety assessment s reviewedst rict compliance with HIV meds to keep suppressio n, prevent resistance and prevent transmissi on.plan of care reviewed. questions and concerns addressedI have suggested switching regimen to better/saf er meds, but she is happy w ATripla, and has declined to be switched. she is aware that TDF is associated with greated bone/kidne y dysfunctio n.labs Type B vir al hepatitis 82168340 B19.10 on Atripla which c over both HIV/HBV. HBV VL DNA ordered. HBV S AG POSITIVE; HBV vL undetected 09/2012; HBV VL =32 2017; nondetecte d 2023 Hyperlipidemia 65022574 E78.5 continue med tx. Prediabetes 413569902 R7 3.03 f/u PCPelevate d HgAICdiet and exercisewe ight loss reviewedtx control reviewed; it may also affect kidneyshe will discuss with PCP; she might need tx in the setting of fatty liver, hyperlipid emia, CKD Chronic ki dney disease 683121280 N18.9 I have recommende d a s witch of regimen to a TAF such as Biktarvy free option which would cover HBV/HIV, and would be associated with decreased kidney and liver toxicity. 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 pt is aware of u/s findings: liver and spleen calcified granulomas pt is aware that CT scan abd w and without contrast has been ordered.pl an of care reviewed Health Concerns Section Related Observation LastModified by Organization Detai ls LastModified Time None Recorded Concern Status LastModified by Organization Details LastModified Time None Recorded Advance Directives Directive None Recorded Payers Encounter Date Sequence Insurance Name Policy Number Policy Deng Covered Member ID Deng Member ID Guarantor Name 12/22/2022 1 [facility] - DOS ON OR AFTER 2022 - MEDICARE [place]AGE [place]ANTAGE - PPO) Rosalinda Jonas [id number] Rosalinda Bryant Jonas 04/06/2023 1 [facility] - DOS ON OR AFTER 2022 - [place]ANTAGE - PPO) Rosalinda Jonas [id number] Rosalinda Bryant McPherson 07/06/2023 1 [facility] - DOS ON OR AFTER 2022 - [place] VANTAGE - PPO) Rosalinda Jonas [id number] Rosalinda Bryant Jonas 10/06/2023 1 [facility] - DOS ON OR AFTER 2022 - [place]ANTAGE - PPO) Rosalinda Jonas [id number] Rosalinda Bryant Jonas 12/30/2023 1 [facility] - DOS ON OR AFTER 2022 - [place] VANTAGE - PPO) Rosalinda Jonas [id number] Rosalinda Jonas Notes Date Note Type Note Provider Name and Address Organization Details Recorded Time 12/22/2022 text/html HIV/HBV. CKD.Telemedicine visit. pt home in [place]. 19 min visit. AUDIO pt missed last in person visit. requests telemedicine visit. not able to come in today due to transportation barriersAtripla 1 tab po qhs for both HIV/HBV. happy w Atripla, and not willing to switch regimen. she is aware of new regimens including Biktarvy, for example which has been recommended in the past.compliant w meds;no recent labsreports got flu vaccinenot sexually active03/2022 Cd4 439 AST 31 ALT 48 eGFR 68 syphilis neg;HIV notdeetected09/2021 HIV VL nondetceted; Kf3=290; ALT/AST wnl; hBV VL nondetceted;eGFR>59; HCV nondetected. got 2 doses of COVID vaccine.CKD hx.med list reviewed. no OTCon Valtrex suppression tx. has not been sick since she was last seenno new MSSA episodesno weight changes. no n/v/d. no fever. no chills. no sweats. Kaia carbone, ELIO SYED MD [facility] 01/07/2023 14:15:45 04/06/2023 text/html HIV/HBV. CKD.Telemedicine visit. pt home in [place]. pt missed in person visit due to snowstorm and transportation barriersAtripla 1 tab po qhs for both HIV/HBV.happy w Atripla, and not willing to switch regimen. she is aware of new regimens including Biktarvy, for example which has been recommended in the past. she is aware of new research protocols.compliant w meds, except has missed few doses due to pharmacy barriers; meds get delivered at home, but she says she is notes she is not getting them on time, and may miss 1-2 doses bethween deliveries.no recent labs; did not go to get labs done. will go this week.reports got flu vaccine and COVID19 vaccines.not sexually active03/2022 Cd4 439 AST 31 ALT 48 eGFR 68 syphilis neg;HIV notdeetected09/2021 HIV VL nondetceted; Dz7=531; ALT/AST wnl; hBV VL nondetceted;eGFR>59; HCV nondetected.got 2 doses of COVID vaccine.CKD hx.med list reviewed. no OTCon Valtrex suppression tx. has not been sick since she was last seenno new MSSA episodesno weight changes. no n/v/d. no fever. no chills. no sweats. Erin Syed MD [address] [place] [address], [phone], ELIO SYED MD [facility] 04/06/2023 11:51:38 07/06/2023 text/html HIV/HBV.Atripla 1 tab po qhs for both HIV/HBV.happy w Atripla, and not willing to switch regimen. she is aware of new regimenscompliant w medsno recent labs; did not go to get labs done.not sexually active03/2022 Cd4 439 AST 31 ALT 48 eGFR 68 syphilis neg;HIV notdeetected09/2021 HIV VL nondetceted; Ik6=647; ALT/AST wnl; hBV VL nondetceted;eGFR>59; HCV nondetected.pharyngiti s. URI. yellow phlegm . no fever. no SOBCKD hx.med list reviewed. no OTCon Valtrex suppression tx. has not been sick since she was last seenno new MSSA episodesdid not go for u/a abd;no allergies to antibiotic Erin Syed MD [address] [place] [address], [phone], ELIO SYED MD [facility] 07/06/2023 10:05:08 10/06/2023 text/html HIV/HBV.Atripla 1 tab po qhs for both HIV/HBV.happy w Atripla, and not willing to switch regimen. she is aware of new regimens to include TDF free options, TAF free options, 2 drug options, injectables.compliant w medswill go to lab this week.has not had labs with PCP.not sexually active03/2022 Cd4 439 AST 31 ALT 48 eGFR 68 syphilis neg;HIV notdeetected09/2021 HIV VL nondetceted; Dp2=811; ALT/AST wnl; hBV VL nondetceted;eGFR>59; HCV nondetected.CKD hx.med list reviewed. no OTCon Valtrex suppression tx. has not been sick since she was last seenno new MSSA episodesno allergies to antibioticnot sexually active Erin Syed MD [address] [place] [address], [phone], ELIO SYED MD [facility] 10/07/2023 00:13:53 12/30/2023 text/html HIV/HBV.Atripla 1 tab po qhs for both HIV/HBV.happy w Atripla, and not willing to switch regimen. she is aware of new regimens to include TDF free options, TAF free options, 2 drug options, injectables.compliant w medsnot sexually active10/2023 HIV VL nondetected; HBV VL Nondetected; XL1=150; F1 fibrosis; eGFR=58; AST/ALT wnl; t bili nl; alb nl; TSH wnl; HaIC 6.4; GC/chlamydia neg; hyperlipidemia; RPR NR; HCV ab neglabs reviewed with pt03/2022 Cd4 439 AST 31 ALT 48 eGFR 68 syphilis neg;HIV notdeetected09/2021 HIV VL nondetceted; Nk9=642; ALT/AST wnl; hBV VL nondetceted;eGFR>59; HCV nondetected.CKD hx.reports has seen PCP recentlyu/s abd 12/28 fatty liver; and calcified granulomas on liver/spleen; she will undergo a CT scan of abd. she is aware of results.med list reviewed. no OTCon Valtrex suppression tx. has not been sick since she was last seenno new MSSA episodesno allergies to antibioticnot sexually active Erin Syed MD [address] [place] [address], [phone], ELIO - ERIN SYED MD [facility] 12/30/2023 11:30:11 OBGyn Episode No OBEpisode recorded.
== END 2024-08-05 14:10 | disposition home or self-care (01) ==
LOC: HO.HMCH 12:54
PROVIDERS: PCP Internal Medicine; Visit Provider Nurse Practitioner Family
DX: R55 Syncope and collapse (principal)

== ENCOUNTER → 2024-08-05 12:53 | Outpatient (BNVA) | payer MEDICARE, SELFPAY | PROVIDERS: PCP Internal Medicine; Visit Provider Nurse Practitioner Family | DX: R55 Syncope and collapse (principal) | CPT/HCPCS: 99212 ==

== ENCOUNTER → 2024-08-16 12:49 | Outpatient (REF) | payer MEDICARE, SELFPAY ==
--- OUTSIDE RECORDS SUMMARY | 2024-08-16 13:52 | XMS_ITS | Data Portability ---
Author Organization ELIO - ERIN GUERRERO MD [facility], Main Office Address [address] [place] [address] Assessment Encounter Date Assessment Date Assessment LastModified by Organization Details LastModified Time 12/22/2022 12/22/2022 19 min [email or web address] Not available 14:24:28 04/06/2023 04/06/2023 telemedicine visit. [place] audio. 21 min [email or web address] Not available 04/06/2023 11:41:03 07/06/2023 07/06/2023 telemedicine visit. [place] audio. 21 min [email or web address] Not available 07/06/2023 09:50:24 10/06/2023 10/06/2023 Video. telemedicine [place]. pt [place] in [place]. 18 min [email or web address] Not available 10/07/2023 00:11:55 12/30/2023 12/30/2023 Audio telemedicine visit. pt home in [place]. 23 min [email or web address] Not available 12/30/2023 11:09:17 Plan of Treatment Reminders Order Date Submit Date Provider Last Modified By Organization Details Last Modified Time Details Appointments None recorded. Lab hepatitis B DNA, quantitat alphonse, serum 2023 024 KENNEDY [facility] (Centralized Electronic Ordering - All Locations), Patient Can Go To The Location Of Their Choice, 4 09:52:59 hepatitis D Ab, serum 2023 024 KENNEDY [facility] ([facility]ized [facility] Ordering - All Locations), Patient Can Go To The Location Of Their Choice, [id number] 09:52:58 hepatitis C liver status biomarker panel, [...] aminotran sferase), serum or plasma 2023 [facility] Patient Can Go To The Location Of Their Choice, 4 16:05:46 CT + NG DNA, PCR, unspecifi ed specimen 2023 [facility]), Patient Can Go To The Location Of Their Choice, 4 16:05:44 creatinin e w/ estimated GFR (eGFR), serum or plasma 2023 024 [facility]), Patient Can Go To The Location Of Their Choice, 4 16:05:44 hepatitis C virus Ab, serum 2023 024 [facility]), Patient Can Go To The Location Of Their Choice, 4 09:53:01 HIV-1 RNA, quantitat alphonse, PCR, serum or plasma 2023 [facility]), Patient Can Go To The Location Of Their Choice, 4 16:05:43 RPR (rapid plasma reagin), serum 2023 024 [facility]), Patient Can Go To The Location Of Their Choice, 4 06:05:23 T-cell regulator y subsets panel, blood 2023 024 [facility]), Patient Can Go To The Location Of Their Choice, 4 09:53:00 hepatitis B DNA, quantitat alphonse, serum 2023 024 [facility]), Patient Can Go To The Location Of Their Choice, 4 10:03:08 hepatitis D Ab, serum 2023 024 [facility]), [...] 10:03:07 RPR (rapid plasma reagin), serum 2023 KENNDEY [facility] ([facility] Ordering - All Locations), Patient Can Go To The Location Of Their Choice, 10:02:52 T-cell regulator y subsets panel, blood 2023 KENNEDY [facility] ([facility] Ordering - All Locations), Patient Can Go To The Location Of Their Choice, 10:02:50 hepatitis B DNA, quantitat alphonse, serum 2023 024 [email or web address] [facility] ([facility] Ordering - All Locations), Patient Can Go To The Location Of Their Choice, 4 00:46:58 hepatitis D Ab, serum 2023 024 [email or web address] [facility] ([facility] Ordering - All Locations), Patient Can Go To The Location Of Their Choice, 00:46:58 hepatitis C liver status biomarker panel, serum 2023 024 [email or web address] [facility] ([facility] Order[facility] - All Locations), Patient Can Go To The Location Of Their Choice, 00:46:59 albumin, serum or plasma 2023 024 [email or web address] [facility] ([facility] Order[facility] - All Locations), Patient Can Go To The Location Of Their Choice, 4 00:46:59 bilirubin , total, serum or plasma 2023 024 [email or web address] [facility] ([facility] Order[facility] - All Locations), Patient Can Go To The Location Of Their Choice, 00:46:59 CBC w/ diff 2023 024 [email or web address] [facility] ([facility] Ordering - All Locations), Patient Can Go To The Location Of Their Choice, 00:46:56 electroly estefania panel, blood 2023 024 [email or web address] [facility] ([facility] Order[facility] - All Locations), Patient Can Go To The Location Of Their Choice, 00:46:56 ALT (alanine aminotran sferase), serum or plasma 2023 024 [facility] ([facility] Order[facility] - All Locations), Patient Can Go To The Location Of Their Choice, 00:46:56 AST/SGOT (aspartat e aminotran sferase), serum or plasma 2023 024 [email or web address] [facility] ([facility] Order[facility] - All Locations), Patient Can Go To The Location Of Their Choice, 00:46:56 CT + NG DNA, PCR, unspecifi ed specimen 2023 024 [email or web address] [facility] ([facility] Order[facility] - All Locations), Patient Can Go To The Location Of Their Choice, 4 00:46:57 creatinin e w/ estimated GFR (eGFR), serum or plasma 2023 024 [email or web address] [facility] ([facility] Order[facility] - All Locations), Patient Can Go To The Location Of Their Choice, 4 00:46:57 hepatitis C virus Ab, serum 2023 024 [email or web address] [facility] ([facility] Ordering - All Locations), Patient Can Go To The Location Of Their Choice, 4 00:46:57 HIV-1 RNA, quantitat alphonse, PCR, serum or plasma 2023 024 [email or web address] [facility] ([facility] Ordering - All Locations), Patient Can Go To The Location Of Their Choice, 4 00:46:57 RPR (rapid plasma reagin), serum 2023 024 [email or web address] [facility] ([facility] Order[facility] - All Locations), Patient Can Go To The Location Of Their Choice, 4 00:46:58 T-cell regulator y subsets panel, blood 2023 024 [email or web address] [facility] ([facility] Order[facility] - All Locations), Patient Can Go To The Location Of Their Choice, 4 00:46:58 hepatitis B DNA, quantitat alphonse, serum 2022 023 [facility] ([facility] Order[facility] - All Locations), Patient Can Go To The Location Of Their Choice, 3 16:07:30 hepatitis D Ab, serum 2022 023 [email or web address] [facility] ([facility] Ordering - All Locations), Patient Can Go To The Location Of Their Choice, 3 16:07:30 hepatitis C liver status biomarker panel, serum 2022 023 [facility] ([facility] Order[facility] - All Locations), Patient Can Go To The Location Of Their Choice, 3 16:07:30 CBC w/ diff 2022 023 [facility] ([facility] Order[facility] - All Locations), Patient Can Go To The Location Of Their Choice, 3 16:07:28 electroly estefania panel, blood 2022 023 [email or web address] [facility] ([facility] Ordering - All Locations), Patient Can Go To The Location Of Their Choice, 3 16:07:28 ALT (alanine aminotran sferase), serum or plasma 2022 023 Ingeny [facility] ([facility] Ordering - All Locations), Patient Can Go To The Location Of Their Choice, 16:07:28 AST/SGOT (aspartat e aminotran sferase), serum or plasma 2022 023 [email or web address] [facility] ([facility] Order[facility] - All Locations), Patient Can Go To The Location Of Their Choice, 16:07:28 CT + NG DNA, PCR, unspecifi ed specimen 2022 023 Ingeny [facility] ([facility] Order[facility] - All Locations), Patient Can Go To The Location Of Their Choice, 16:07:29 creatinin e w/ estimated GFR (eGFR), serum or plasma 2022 023 [email or web address] [facility] ([facility] Order[facility] - All Locations), Patient Can Go To The Location Of Their Choice, 16:07:29 hepatitis C virus Ab, serum 2022 023 Ingeny [facility] ([facility] Order[facility] - All Locations), Patient Can Go To The Location Of Their Choice, 16:07:29 HIV-1 RNA, quantitat alphonse, PCR, serum or plasma 2022 023 Ingeny [facility] ([facility] Order[facility] - All Locations), Patient Can Go To The Location Of Their Choice, 16:07:29 RPR (rapid plasma reagin), serum 2022 023 [email or web address] [facility] ([facility] Order[facility] - All Locations), Patient Can Go To The Location Of Their Choice, 16:07:29 T-cell regulator y subsets panel, blood 2022 023 [email or web address] [facility] ([facility] Order[facility] - All Locations), Patient Can Go To The Location Of Their Choice, 3 16:07:29 Referral None recorded. Procedures None recorded. Surgeries None recorded. Imaging CT, abdomen, w/wo contrast - abnormal ultrasoun d 12/29/23: calcified granuloma s liver/spl een 2023 024 [email or web address] [facility], [address], [place], [address], 4 12:23:05 US, abdomen - dx HBV. HCC screen 2023 024 [facility] [place], [address], [address], [place], [address], 4 09:58:13 US, liver - HCC screen. 2023 024 KENNEDY [facility] [place], [address], [address], [place], [address], 4 23:10:24 Medication Orders Atripla 600 mg-200 mg-300 mg tablet 2023 024 [facility] [address], [address], [address], [place], [place], [id number], 4 11:24:21 Atripla 600 mg-200 mg-300 mg tablet 2023 024 [facility] [address], [address], [address], [place], [place], [id number], 4 09:53:09 azithromy shawn 500 mg tablet 2023 024 ANCHORAGE [facility], [address], [place], [address], 4 10:04:04 Atripla 600 mg-200 mg-300 mg tablet 2023 024 [facility] [address], [address], [address], [place], [place], [id number], 4 10:03:58 Atripla 600 mg-200 mg-300 mg tablet 2023 024 KENNEDY [place] [address] [address], [address], [address] , [place], [place], [id number], 4 11:48:10 Atripla 600 mg-200 mg-300 mg tablet 2022 023 [email or web address] [place] [address] [address], [address], [address], [place], [place], [id number], 3 00:03:30 Patient TargetsNo targets recorded. Patient InstructionsNo instructions recorded. Reason for Referral None Reported. Results Created Date Observation Date Name Description Value Unit Range Abnormal Flag Note LastModifiedBy Organization Detail LastModifiedTime 11/02/1911/03/2023 CT, NG, TRICH VAG BY SAFIA chlamydia by SAFIA Negati ve negati ve Not Available [facility] ([facility]) [address] [place], [address], 11/03/2023 18:06:05 11/02/1911/03/2023 CT, NG, TRICH VAG BY SAFIA gonococcus by SAFIA Negati ve negati ve Not Available [facility] ([facility]) [address] [place], [address], 11/03/2023 18:06:05 11/02/1911/03/2023 CT, NG, TRICH VAG BY SAFIA trich vag by SAFIA Negati ve negati ve Not Available [facility] ([facility]) [address] [place], [address], 11/03/2023 18:06:05 11/02/19 24 11/10/2023 HCV ANTIB [...] e HCV infec tion. Not Available [facility] ([facility]) [address] [facility], [place], [address], 11/10/2023 06:05:21 11/02/19 24 11/10/2023 RPR RPR Non Reacti ve non reacti ve Not Available [facility] ([facility]) [address] [facility], [place], [address], 11/10/2023 06:05:23 11/02/19 24 11/04/2023 CBC/D /PLT W/ REFLE X EZE TIN WBC 7.4 x10e3 /uL 3.4-10 .8 normal Not Available [facility] ([facility]) [address] [facility], [place], [address], 11/15/2023 16:05:40 11/02/19 24 11/04/2023 CBC/D /PLT W/ REFLE X EZE TIN RBC 4.45 x10e6 /uL 3.77-5 .28 normal Not Available [facility] ([facility]) [address] [facility], [place], [address], 11/15/2023 16:05:40 11/02/19 24 11/04/2023 CBC/D /PLT W/ REFLE X EZE TIN hemoglobin 13.7 g/dL 11.1-1 5.9 normal Not Available [facility] ([facility]) [address] [place], [address], 11/15/2023 16:05:40 11/02/19 24 11/04/2023 CBC/D /PLT W/ REFLE X EZE TIN hematocrit 43.0 % 34.0-4 6.6 normal Not Available [facility] ([facility]) [address] [place], [address], 11/15/2023 16:05:40 11/02/19 24 11/04/2023 CBC/D /PLT W/ REFLE X EZE TIN MCV 97 fL 79-97 normal Not Available [facility] ([facility]) [address] [facility], [place], [address], 11/15/2023 16:05:40 11/02/19 24 11/04/2023 CBC/D /PLT W/ REFLE X EZE TIN MCH 30.8 pg 26.6-3 3.0 normal Not Available [facility] ([facility]) [address] [facility], [place], [address], 11/15/2023 16:05:40 11/02/19 24 11/04/2023 CBC/D /PLT W/ REFLE X EZE TIN MCHC 31.9 g/dL 31.5-3 5.7 normal Not Available [facility] ([facility]) [address] [facility], [place], [address], 11/15/2023 16:05:40 11/02/19 24 11/04/2023 CBC/D /PLT W/ REFLE X EZE TIN RDW 13.9 % 11.7-1 5.4 Not Available [facility] ([facility]) [address] [facility], [place], [address], 11/15/2023 16:05:40 11/02/19 24 11/04/2023 CBC/D /PLT W/ REFLE X EZE TIN platelets 216 x10e3 /uL 150-45 0 normal Not Available [facility] ([facility]) [address] [facility], [place], [address], 11/15/2023 16:05:40 11/02/19 24 11/04/2023 CBC/D /PLT W/ REFLE X EZE TIN neutrophils 69 % not estab. normal Not Available [facility] ([facility]) [address] [facility], [place], [address], 11/15/2023 16:05:40 11/02/19 24 11/04/2023 CBC/D /PLT W/ REFLE X EZE TIN lymphs 19 % not estab. normal Not Available [facility] ([facility]) [address] [facility], [place], [address], 11/15/2023 16:05:40 11/02/19 24 11/04/2023 CBC/D /PLT W/ REFLE X EZE TIN monocytes 7 % not estab. normal Not Available [facility] ([facility]) [address] [facility], [place], [address], 11/15/2023 16:05:40 11/02/19 24 11/04/2023 CBC/D /PLT W/ REFLE X EZE TIN eos 3 % not estab. normal Not Available [facility] ([facility]) [address] [facility], [place], [address], 11/15/2023 16:05:40 11/02/19 24 11/04/2023 CBC/D /PLT W/ REFLE X EZE TIN basos 1 % not estab. normal Not Available [facility] ([facility]) [address] [facility], [place], [address], 11/15/2023 16:05:40 11/02/19 24 11/04/2023 CBC/D /PLT W/ REFLE X EZE TIN immature cells HRIS COORDINATOR Not Available [facility] ([facility]) [address] [facility], [place], [address], 11/15/2023 16:05:40 11/02/19 24 11/04/2023 CBC/D /PLT W/ REFLE X EZE TIN neutrophils (absolute) 5.1 x10e3 /uL 1.4-7. 0 normal Not Available [facility] ([facility]) [address] [facility], [place], [address], 11/15/2023 16:05:40 11/02/19 24 11/04/2023 CBC/D /PLT W/ REFLE X ZEE TIN lymphs (absolute) 1.4 x10e3 /uL 0.7-3. 1 normal Not Available [facility] ([facility]) [address] [facility], [place], [address], 11/15/2023 16:05:40 11/02/19 24 11/04/2023 CBC/D /PLT W/ REFLE X EZE TIN monocytes(ab solute) 0.5 x10e3 /uL 0.1-0. 9 normal Not Available [facility] ([facility]) [address] [facility], [place], [address], 11/15/2023 16:05:40 11/02/19 24 11/04/2023 CBC/D /PLT W/ REFLE X EZE TIN eos (absolute) 0.2 x10e3 /uL 0.0-0. 4 normal Not Available [facility] ([facility]) [address] [facility], [place], [address], 11/15/2023 16:05:40 11/02/19 24 11/04/2023 CBC/D /PLT W/ REFLE X EZE TIN baso (absolute) 0.1 x10e3 /uL 0.0-0. 2 normal Not Available [facility] ([facility]) [address] [facility], [place], [address], 11/15/2023 16:05:40 11/02/19 24 11/04/2023 CBC/D /PLT W/ REFLE X EZE TIN immature granulocytes 1 % not estab. Not Available [facility] ([facility]) [address] [facility], [place], [address], 11/15/2023 16:05:40 11/02/19 24 11/04/2023 CBC/D /PLT W/ REFLE X EZE TIN immature grans (abs) 0.1 x10e3 /uL 0.0-0. 1 Not Available [facility] ([facility]) [address] [facility], [place], [address], 11/15/2023 16:05:40 11/02/19 24 11/04/2023 CBC/D /PLT W/ REFLE X EZE TIN NRBC HRIS COORDINATOR Not Available [facility] ([facility]) [address] [facility], [place], [address], 11/15/2023 16:05:40 11/02/19 24 11/04/2023 CBC/D /PLT W/ REFLE X EZE TIN hematology comments: HRIS COORDINATOR Not Available [facility] ([facility]) [address] [facility], [place], [address], 11/15/2023 16:05:40 11/02/19 24 11/04/2023 T-ALYSSA L ACTIV ATION , CD8 SUBSE TS absolute cd 3 1096 /uL 622-24 02 Not Available [facility] ([facility]) [address] [facility], [place], [address], 11/15/2023 16:05:41 11/02/19 24 11/04/2023 T-ALYSSA L ACTIV ATION , CD8 SUBSE TS % cd 3 pos. lymph. 78.3 % 57.5-8 6.2 Not Available [facility] ([facility]) [address] [facility], [place], [address], 11/15/2023 16:05:41 11/02/19 24 11/04/2023 T-ALYSSA L ACTIV ATION , CD8 SUBSE TS absolute cd 4 helper 620 /uL 359-15 19 Not Available [facility] ([facility]) [address] [facility], [place], [address], 11/15/2023 16:05:41 11/02/19 24 11/04/2023 T-ALYSSA L ACTIV ATION , CD8 SUBSE TS % cd 4 pos. lymph. 44.3 % 30.8-5 8.5 Not Available [facility] ([facility]) [address] [facility], [place], [address], 11/15/2023 16:05:41 11/02/19 24 11/04/2023 T-ALYSSA L ACTIV ATION , CD8 SUBSE TS absolute cd 8 (supp) 479 /uL 109-89 7 Not Available [facility] ([facility]) [address] [place], [address], 11/15/2023 16:05:41 11/02/19 24 11/04/2023 T-ALYSSA L ACTIV ATION , CD8 SUBSE TS % cd 8 pos. lymph. 34.2 % 12.0-3 5.5 Not Available [facility] ([facility]) [address] [place], [address], 11/15/2023 16:05:41 11/02/19 24 11/04/2023 T-ALYSSA L ACTIV ATION , CD8 SUBSE TS cd4/cd8 ratio 1.30 0.92-3 .72 Not Available [facility] ([facility]) [address] [place], [address], 11/15/2023 16:05:41 11/02/19 24 11/04/2023 T-ALYSSA L ACTIV ATION , CD8 SUBSE TS abs.cd8+hla- dr+lymph 139 /uL 0-117 above high normal This test was devel oped and its perfo rmanc e katia cteri stics deter mined by [employer]. It has not been clear ed or appro moriah by the Food and Drug Admin istra tion. Not Available [facility] ([facility]) [address] [place], [address], 11/15/2023 16:05:41 11/02/19 24 11/04/2023 T-ALYSSA L ACTIV ATION , CD8 SUBSE TS % cd8+hla-dr+ lymphs 9.9 % 0.0-4. 9 above high normal This test was devel oped and its perfo rmanc e katia cteri stics deter mined by [employer]. It has not been clear ed or appro moriah by the Food and Drug Admin istra tion. Not Available [facility] ([facility]) [address] [facility], [place], [address], 11/15/2023 16:05:41 11/02/19 24 11/04/2023 T-ALYSSA L ACTIV ATION , CD8 SUBSE TS % cd3+cd25+ lymphs 18.7 % 4.9-25 .9 This test was devel oped and its perfo rmanc e katia cteri stics deter mined by [employer]. It has not been clear ed or appro moriah by the Food and Drug Admin istra tion. Not Available [facility] ([facility]) [address] [facility], [place], [address], 11/15/2023 16:05:41 11/02/19 24 11/04/2023 T-ALYSSA L ACTIV ATION , CD8 SUBSE TS abs.cd3+cd25 + lymphs 262 /uL 79-535 This test was devel oped and its perfo rmanc e katia cteri stics deter mined by [employer] [facility]. It has not been clear ed or appro moriah by the Food and Drug Admin istra tion. Not Available [facility] ([facility]) [address] [facility], [place], [address], 11/15/2023 16:05:41 11/02/19 24 11/04/2023 T-ALYSSA L ACTIV ATION , CD8 SUBSE TS % cd8+cd38+ lymphs 8.1 % 0.0-17 .7 This test was devel oped and its perfo rmanc e katia cteri stics deter mined by [employer]. It has not been clear ed or appro moriah by the Food and Drug Admin istra tion. Not Available [facility] ([facility]) [address] [facility], [place], [address], 11/15/2023 16:05:41 11/02/19 24 11/04/2023 T-ALYSSA L ACTIV ATION , CD8 SUBSE TS abs.cd8+cd38 + lymphs 113 /uL 0-381 This test was devel oped and its perfo rmanc e katia cteri stics deter mined by [employer]. It has not been clear ed or appro moriah by the Food and Drug Admin istra tion. Not Available [facility] ([facility]) [address] [place], [address], 11/15/2023 16:05:41 11/02/19 24 11/02/2023 HCV FIBRO SURE methodology: Commen t The dilcia estefania teste d are perfo rmed by Fibro Sure- Speci fic metho ds. Not inten ded for use with other diagn ostic consi derat ions. Not Available [facility] ([facility]) [address] [place], [address], 11/15/2023 16:05:41 11/02/19 24 11/02/2023 HCV FIBRO [...] (META VIR A0-A3 ). Not Available [facility] ([facility]) [address] [place], [address], 11/15/2023 16:05:41 11/02/19 24 11/02/2023 HCV FIBRO [...] F4 - Cirrh osis Not Available [facility] ([facility]) [address] [place], [address], 11/15/2023 16:05:41 11/02/19 24 11/02/2023 HCV FIBRO [...] Sever e activ ity Not Available [facility] ([facility]) [address] [facility], [place], [address], 11/15/2023 16:05:41 11/02/19 24 11/02/2023 HCV FIBRO SURE comment: Commen t This test was devel oped and its perfo rmanc e katia cteri stics deter mined by [employer]. It has not been clear ed or appro moriah by the Food and Drug Admin istra tion. The FDA has deter mined that such clear ance or appro sarah is not neces haley. For quest aaron osorio this repor t mary patricia ct custo noemi servi ce at [phone]. Not Available [facility] ([facility]) [address] [facility], [place], [address], 11/15/2023 16:05:41 11/02/19 24 11/06/2023 HCV FIBRO SURE alpha 2-macroglobu renay, qn 254 mg/dL 110-27 6 Not Available [facility] ([facility]) [address] [facility], [place], [address], 11/15/2023 16:05:41 11/02/19 24 11/06/2023 HCV FIBRO SURE haptoglobin <10 mg/dL 37-355 below low normal Not Available [facility] ([facility]) [address] [place], [address], 11/15/2023 16:05:41 11/02/19 24 11/06/2023 HCV FIBRO SURE apolipoprote in A-1 180 mg/dL 116-20 9 Not Available [facility] ([facility]) [address] [place], [address], 11/15/2023 16:05:41 11/02/19 24 11/06/2023 HCV FIBRO SURE bilirubin, total <0.1 mg/dL 0.0-1. 2 Not Available [facility] ([facility]) [address] [place], [address], 11/15/2023 16:05:41 11/02/19 24 11/06/2023 HCV FIBRO SURE GGT 34 IU/L 0-60 Not Available [facility] ([facility]) [address] [place], [address], 11/15/2023 16:05:41 11/02/19 24 11/06/2023 HCV FIBRO SURE ALT (SGPT) p5p 26 IU/L 0-40 Not Available [facility] ([facility]) [address] [place], [address], 11/15/2023 16:05:41 11/02/19 24 11/07/2023 HCV FIBRO SURE fibrosis score 0.31 0.00-0 .21 above high normal Not Available [facility] ([facility]) [address] [place], [address], 11/15/2023 16:05:41 11/02/19 24 11/07/2023 HCV FIBRO SURE fibrosis stage Commen t F1 - Paulette l fibro sis Not Available [facility] ([facility]) [address] [place], [address], 11/15/2023 16:05:41 11/02/19 24 11/07/2023 HCV FIBRO SURE necroinflamm at activity score 0.12 0.00-0 .17 Not Available [facility] ([facility]) [address] [facility], [place], [address], 11/15/2023 16:05:41 11/02/19 24 11/07/2023 HCV FIBRO SURE necroinflamm at activity grade A0-No activi ty Not Available [facility] ([facility]) [address] [facility], [place], [address], 11/15/2023 16:05:41 11/02/19 24 11/07/2023 HCV FIBRO [...] in the liver . Not Available [facility] ([facility]) [address] [facility], [place], [address], 11/15/2023 16:05:41 11/02/19 24 11/04/2023 LIPID PANEL cholesterol, total 217 mg/dL 100-19 9 above high normal Not Available [facility] ([facility]) [address] [facility], [place], [address], 11/15/2023 16:05:42 11/02/19 24 11/04/2023 LIPID PANEL triglyceride s 123 mg/dL 0-149 normal Not Available [facility] ([facility]) [address] [facility] [place], [address], 11/15/2023 16:05:42 11/02/19 24 11/04/2023 LIPID PANEL HDL cholesterol 74 mg/dL >39 normal Not Available [facility] ([facility]) [address] [facility] [place], [address], 11/15/2023 16:05:42 11/02/19 24 11/04/2023 LIPID PANEL VLDL cholesterol verna 21 mg/dL 5-40 Not Available [facility] ([facility]) [address] [place], [address], 11/15/2023 16:05:42 11/02/19 24 11/04/2023 LIPID PANEL LDL chol calc ([facility]) 122 mg/dL 0-99 above high normal Not Available [facility] ([facility]) [address] [facility] [place], [address], 11/15/2023 16:05:42 11/02/19 24 11/04/2023 LIPID PANEL LDL calc comment: HRIS COORDINATOR Not Available [facility] ([facility]) [address] [place], [address], 11/15/2023 16:05:42 11/02/19 24 11/04/2023 ELECT ROLYT E PANEL sodium 143 mmol/ L 134-14 4 normal Not Available [facility] ([facility]) [address] [place], [address], 11/15/2023 16:05:42 11/02/19 24 11/04/2023 ELECT ROLYT E PANEL potassium 3.6 mmol/ L 3.5-5. 2 normal Not Available [facility] ([facility]) [address] [place], [address], 11/15/2023 16:05:42 08/05/20 24 11/04/2023 ELECT ROLYT E PANEL chloride 106 mmol/ L 96-106 normal Not Available [facility] ([facility]) [address] [facility], [place], [address], 11/15/2023 16:05:42 11/02/19 24 11/04/2023 ELECT ROLYT E PANEL carbon dioxide, total 25 mmol/ L 20-29 normal Not Available [facility] ([facility]) [address] [facility], [place], [address], 11/15/2023 16:05:42 11/02/19 24 11/02/2023 HBV REAL- TIME PCR, QUANT test information: Commen t The repor table range for this assay is 10 IU/mL to 1 kanika on IU/mL . Not Available [facility] ([facility]) [address] [facility], [place], [address], 11/15/2023 16:05:43 11/02/19 24 11/05/2023 HBV REAL- TIME PCR, QUANT HBV IU/mL HBV DNA not detect ed IU/mL Not Available [facility] ([facility]) [address] [place], [address], 11/15/2023 16:05:43 11/02/19 24 11/05/2023 HBV REAL- TIME PCR, QUANT log10 HBV IU/mL COMMEN T log10 _IU/m L Unabl e to calcu late resul t since non-n umeri c resul t obtai idalia for compo nent test. Not Available [facility] ([facility]) [address] [facility], [place], [address], 11/15/2023 16:05:43 11/02/19 24 11/05/2023 RNA, PCR(N ONGRA PH)RF X/GEN OPRI HIV-1 RNA by PCR <20 copie s/mL HIV-1 RNA not detec bernice The repor table range for this assay is 20 to 10,00 0,000 copie s HIV-1 RNA/m L. Not Available [facility] ([facility]) [address] [facility], [place], [address], 11/15/2023 16:05:43 11/02/19 24 11/05/2023 RNA, PCR(N ONGRA PH)RF X/GEN OPRI log10 HIV-1 RNA COMMEN T log10 copy/ mL Unabl e to calcu late resul t since non-n umeri c resul t obtai idalia for compo nent test. Not Available [facility] ([facility]) [address] [facility], [place], [address], 11/15/2023 16:05:43 11/02/19 24 11/05/2023 RNA, PCR(N ONGRA PH)RF X/GEN OPRI HIV genosure prime(R) COMMEN T Not indic ated Not Available [facility] ([facility]) [address] [place], [address], 11/15/2023 16:05:43 11/02/19 24 11/04/2023 GLOM FILT RATE, ESTIM ATED creatinine 1.08 mg/dL 0.57-1 .00 above high normal Not Available [facility] ([facility]) [address] [place], [address], 11/15/2023 16:05:44 11/02/19 24 11/04/2023 GLOM FILT RATE, ESTIM ATED eGFR 58 mL/mi n/1.7 3 >59 below low normal Not Available [facility] ([facility]) [address] [place], [address], 11/15/2023 16:05:44 11/02/19 24 11/06/2023 CHLAM YDIA/ GC AMPLI FICAT ION chlamydia trachomatis, SAFIA COMMEN T Pleas e refer to the follo wing speci men for addit ional lab resul ts. SPEC# [id number] 0 Not Available [facility] ([facility]) [address] [place], [address], 11/15/2023 16:05:44 11/02/19 24 11/06/2023 CHLAM YDIA/ GC AMPLI FICAT ION neisseria gonorrhoeae, SAFIA COMMEN T Pleas e refer to the follo wing speci men for addit ional lab resul ts. SPEC# [id number] 0 Not Available [facility] ([facility]) [address] [facility], [place], [address], 11/15/2023 16:05:44 11/02/19 24 11/11/2023 THYRO ID STIMU LATIN G HORMO NE TSH-icma 0.92 uu/mL Refer ence Range : Non-P regna nt Adult 0.450 -4.50 0 Pregn sarah First Trime ster 0.100 -4.00 0 Secon d Trime ster 0.200 -4.00 0 Third Trime ster 0.300 -4.50 0 Not Available [facility] [address] [place] [address], [address], 11/15/2023 16:05:45 11/02/19 24 11/03/2023 HEMOG LOBIN A1C hemoglobin A1C 6.4 % 4.8-5. 6 above high normal Predi abete s: 5.7 - 6.4 Diabe estefania: >6.4 Glyce magdiel contr ol for adult s with diabe estefania: <7.0 Not Available [facility] ([facility]) [address] [facility], [place], [address], 11/15/2023 16:05:45 11/02/19 24 11/04/2023 ALBUM IN albumin 4.4 g/dL 3.9-4. 9 normal Not Available [facility] ([facility]) [address] [facility], [place], [address], 11/15/2023 16:05:45 11/02/19 24 11/04/2023 BILIR UBIN, TOTAL bilirubin, total <0.2 mg/dL 0.0-1. 2 Not Available [facility] ([facility]) [address] [facility], [place], [address], 11/15/2023 16:05:46 11/02/19 24 11/04/2023 AST (SGOT ) AST (SGOT) 21 IU/L 0-40 normal Not Available [facility] ([facility]) [address] [facility], [place], [address], 11/15/2023 16:05:46 11/02/19 24 11/04/2023 ALT (SGPT ) ALT (SGPT) 22 IU/L 0-32 normal Not Available [facility] ([facility]) [address] [facility], [place], [address], 11/15/2023 16:05:47 11/02/19 24 11/06/[address] PROBL EM request problem COMMEN T Pleas e refer to the follo wing speci men for addit ional lab resul ts. TEST: [id number] Chlam ydia trach omati s, SFAIA Panel : [phone] Neiss eria gonor rhoea e, SAFIA Panel : [id number] SPEC# [id number] 0 Not Available [facility] ([facility]) [address] [facility], [place], [address], 11/15/2023 16:05:47 04/20/19 US, liver No observ ation record ed. [facility] [address], [address], 04/20/2023 23:10:49 12/30/19 US, abdom en No observ ation record ed. [email or web address] Not Available 12/29 16:21:06 12/30/1912/29/2023 US, abdom en No observ ation record ed. [email or web address] [facility] [address], [address], 02/15/2024 15:11:05 Result Notes None recorded. Problems Name Problem SNOMED Code Status Onset Date Resolution Date Notes Provider Name and Address Organization Details Recorded Time Type B viral hepatiti s 52471893 Active 2023 Erin Syed MD [address] [facility] [place], [address] , ELIO SYED MD [facility] 4 11:45:29 Human immunode ficiency virus infectio n 41246966 Active 2023 [facility] [address] [facility] [place], [address] , ELIO SYED MD [facility] 4 11:47:51 Gastroes ophageal reflux disease without esophagi tis 971264693 Active 2016 Gastro-e sophagea l reflux disease without esophagi tis; snomedde scriptio n: Gastroes ophageal reflux disease; Report Immunity to Registry : Yes; Not Available [facility] 4 06:58:21 Chronic kidney disease 366225206 Active 2015 Chronic kidney disease, unspecif ied; snomedde scriptio n: Chronic renal impairme nt; Report Immunity to Registry : Yes; Notes: ckd GFR=55 2015; 49 2018; Not Available [facility] 4 06:58:21 Asthma 971810705 Active 1962 Asthma; Report Immunity to Registry : Yes; Not Available [facility] 4 06:58:22 Chronic renal impairme nt Active 2015 Chronic renal impairme nt; snomedde scriptio n: Chronic renal impairme nt; Report Immunity to Registry : Yes; Notes: ckd GFR=55 2015; 49 2018; Not Available [facility] 4 06:58:22 History of tubal ligation 078446802 Active 1994 H/O: tubal ligation ; snomedde scriptio n: H/O: tubal ligation ; Report Immunity to Registry : Yes; Tubal ligation status; snomedde scriptio n: H/O: tubal ligation ; Report Immunity to Registry : Yes; Not Available [facility] 4 06:58:22 Gastroes ophageal reflux disease 261617471 Active 2016 Gastroes ophageal reflux disease; snomedde scriptio n: Gastroes ophageal reflux disease; Report Immunity to Registry : Yes; Not Available [facility] 4 06:58:22 Nasal congesti on 45679399 Active 1993 Nasal congesti on; snomedde scriptio n: Congesti on of nasal sinus; Report Immunity to Registry : Yes; Not Available [facility] 4 06:58:[address] Concept Active 2021 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; snomedde scriptio n: 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; Report Immunity to Registry : Yes; Notes: 05/2021; Not Available [facility] 4 06:58:22 Mixed hyperlip idemia 252713793 Active 2010 Mixed hyperlip idemia; snomedde scriptio n: Mixed hyperlip idemia; Report Immunity to Registry : Yes; Not Available [facility] 4 06:58:23 Genital herpes simplex 56958157 Active 2010 Genital herpes simplex; snomedde scriptio [...] and 2 pos serology ; Not Available [facility] 4 06:58:23 Noninfec tious gastroen teritis 23520084 Active 2005 Noninfec tive gastroen teritis and colitis, unspecif ied; snomedde scriptio n: Chronic diarrhea ; Report Immunity to Registry : Yes; Notes: chronic diarrhea 2005; Not Available [facility] 4 06:58:23 Noninfec tious colitis 20402042 Active 2005 Noninfec tive gastroen teritis and colitis, unspecif ied; snomedde scriptio n: Chronic diarrhea ; Report Immunity to Registry : Yes; Notes: chronic diarrhea 2005; Not Available [facility] 4 06:58:23 Hyperlip idemia 95831917 Completed 201805/20/2023 Hyperlip idemia; snomedde scriptio n: Hyperlip idemia; Report Immunity to Registry : Yes; ReasonDa te: 02/05/20 19; Other and unspecif ied hyperlip idemia; snomedde scriptio n: Hyperlip idemia; Report Immunity to Registry : Yes; ReasonDa te: 02/05/20 19; Erin Syed MD [address] [place] [address], [phone] [facility] ERIN SYED MD [facility] 4 11:08:44 Congesti on of nasal sinus 18677192 Active 1993 Congesti on of nasal sinus; snomedde scriptio n: Congesti on of nasal sinus; Report Immunity to Registry : Yes; Not Available [facility] 4 06:58:23 Chronic diarrhea 303898886 Active 2005 Chronic diarrhea ; snomedde scriptio n: Chronic diarrhea ; Report Immunity to Registry : Yes; Notes: chronic diarrhea 2005; Not Available [facility] 4 06:58:23 Hyperten sive disorder 87961399 Active 2010 Hyperten sive disorder ; snomedde scriptio n: Hyperten sive disorder ; Report Immunity to Registry : Yes; Not Available [facility] 4 06:58:23 Essentia l hyperten israel 38320868 Active 2010 Unspecif ied essentia l hyperten israel; snomedde scriptio n: Hyperten sive disorder ; Report Immunity to Registry : Yes; Not Available [facility] 4 06:58:24 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 Active 2021 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; snomedde scriptio n: 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; Report Immunity to Registry : Yes; Notes: 05/2021; Not Available [facility] 4 06:58:24 Chronic type B viral hepatiti s 30360109 Active 2005 Chronic type B viral hepatiti [...] =32 2017; nondetec bernice 2018; Not Available [facility] 4 06:58:24 Lipodyst rophy 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 Active 2010 Lipodyst rophy; snomedde scriptio n: Lipodyst rophy; Report Immunity to Registry : Yes; Not Available [facility] 4 06:58:24 Steatoti c liver disease 925928123 Active 2023 Erin Syed MD [address] [place], [place] [address], [address] , ELIO SYED MD [facility] 4 11:08:37 Prediabe estefania 475430214 Active 2023 Erin Syed MD [address] [place] [address] [place], [address] , ELIO SYED MD [facility] 4 11:08:41 Hyperlip idemia 47828701 Active 2023 Hyperlip idemia; snomedde scriptio n: Hyperlip idemia; Report Immunity to Registry : Yes; ReasonDa te: 02/05/20 19; Other and unspecif ied hyperlip idemia; snomedde scriptio n: Hyperlip idemia; Report Immunity to Registry : Yes; ReasonDa te: 02/05/20 19; Erin Syed MD [address] [place] [address] [place], [address] , ELIO SYED MD [facility] 4 11:08:44 Problem Notes None recorded. Procedures Surgical History None recorded. Imaging Results Imaging Date Name Status LastModified by Organiz ation Details LastModified Time 04/20/2023 US, liver completed [email or web address] [facility] [address], [address], 04/20/2023 23:10:49 12/30/2023 US, abdomen completed [email or web address] Information n ot available 12/30/2023 16:21:06 12/29/2023 US, abdomen completed [email or web address] [facility] [address], [address], 02/15/2024 15:11:05 Procedure Notes None recorded. Medical [...] ccal conjugat e PCV 13; SU_FULL_ NAME: Erin Fink; Not Available Not [...] split virus, quadrivalent, preservative completed Not Available [facility] 05/20/2023 06:54:39 Past Encounters Encounter ID Performer Location Encounter Start Date Encounter Closed Date Diagnosis/Indication Diagnosis SNOMED-CT Code Diagnosis ICD10 Code Diagnosis Note [id number] Erin Syed MD Main Office [address] [place] [address], [place] [address] 12/22/2022 11:21:30 12/22/2022 14:37:08 Human immunodeficiency virus infection 71305937 B20 HIV/HBV. on Atripla 1 tab po qhs. wants to keep current regimen. strict compliance with HIV meds to keep suppressio n, prevent resistance and prevent transmissi on. labs 12/2022: CBC ALt AST HIV vL,CD4, HBV VL, creatinine , RPR. plan of care reviewed. questions and concerns addressed Chronic ki dney disease 309160239 N18.9 I have recommende d a s witch of regimen to a TAF such as Biktarvy free option which would cover HBV/HIV, and would be associated with decreased kidney and liver toxicity.h ydrationav oid NSAIDS Type B vir al hepatitis 39749837 B19.10 on Atripla which c over both HIV/HBV. HBV VL DNA ordered. Hepatitis D ab ordered. [id number] Erin Syed MD Main Office [address] [place] [address] 04/06/2023 11:18:48 04/06/2023 12:50:52 Human immunodeficiency virus infection 37235412 B20 HIV/HBV. on Atripla 1 tab po [...] concerns addressed Type B vir al hepatitis 27508826 B19.10 on Atripla which c over both HIV/HBV. HBV VL DNA ordered. Hepatitis D ab ordered. HBV S AG POSITIVE; HBV vL undetected 09/2012; HBV VL =32 2017; nondetecte d 2019routin e screen U/s abd HCC screen [id number] Erin Syed MD Main Office [address] [place] [address] 07/06/2023 09:46:39 07/06/2023 10:11:13 Human immunodeficiency virus infection 99182368 B20 HIV/HBV. on Atripla 1 tab po [...] concerns addressed Type B vir al hepatitis 23603679 B19.10 on Atripla which c over both HIV/HBV. HBV VL DNA ordered. Hepatitis D ab ordered. HBV S AG POSITIVE; HBV vL undetected 09/2012; HBV VL =32 2017; nondetecte d 2019u/s abd has been ordered; she will call to reschedule appointmen t Pharyngitis [id number] J0 2.9 cough, malaise. yellow phlegm. to call if not improvedAz ithromycin for 5 days.to call if worsening or nonresolvi ngno allergies to antibiotic s [id number] Erin Syed MD Main Office [address] [place] [phone] 10/06/2023 09:33:47 10/06/2023 10:44:39 Human immunodeficiency virus infection 30764368 B20 HIV/HBV. on Atripla 1 tab po [...] addressedl abs Type B vir al hepatitis 95228786 B19.10 on Atripla which c over both HIV/HBV. HBV VL DNA ordered. Hepatitis D ab ordered. HBV S AG POSITIVE; HBV vL undetected 09/2012; HBV VL =32 2017; nondetecte d 2019u/s abd has been ordered; she will call to reschedule appointmen t Hyperlipidemia 05673511 E78.5 continue med tx. Adult heal th examination 602798952 Z00.00 labs ordered. [id number] Erin Syed MD Main Office [address] [place] [address] 12/30/2023 10:25:02 12/30/2023 12:10:58 Human immunodeficiency virus infection 60612639 B20 HIV/HBV. on Atripla 1 tab po [...] dysfunctio n.labs Type B vir al hepatitis 10636385 B19.10 on Atripla which c over both HIV/HBV. HBV VL DNA ordered. HBV S AG POSITIVE; HBV vL undetected 09/2012; HBV VL =32 2017; nondetecte d 2023 Hyperlipidemia 19070250 E78.5 continue med tx. Prediabetes 433877795 R7 3.03 f/u PCPelevate d HgAICdiet and exercisewe ight loss reviewedtx control reviewed; it may also affect kidneyshe will discuss with PCP; she might need tx in the setting of fatty liver, hyperlipid emia, CKD Chronic ki dney disease 921850896 N18.9 I have recommende d a s witch of regimen to a TAF such as Biktarvy free option which would cover HBV/HIV, and would be associated with decreased kidney and liver toxicity. 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 - DOS ON OR AFTER 2022 - [place]ANT[place] - PPO) Rosalinda Jonas [id number] Rosalinda Bryant Jonas 10/06/2023 1 [facility] - DOS ON OR AFTER 2022 - [place]ANT[place] - PPO) Rosalinda Jonas [id number] Rosalinda Bryant Jonas 12/30/2023 1 [facility] - DOS ON OR AFTER 2022 - [place]ANT[place] - PPO) Rosalinda Jonas [id number] Rosalinda Jonas Notes Date Note Type Note Provider Name and Address Organization Details Recorded Time 12/22/2022 text/html HIV/HBV. CKD.Telemedicine visit. pt home in [place]. 19 min visit. AUDIO pt missed last [...] 68 syphilis neg;HIV notdeetected09/2021 HIV VL nondetceted; Sc1=831; ALT/AST wnl; hBV VL nondetceted;eGFR>59; HCV nondetected. got 2 doses of COVID vaccine.CKD hx.med list reviewed. no OTCon Valtrex suppression tx. has not been sick since she was last seenno new MSSA episodesno weight changes. no n/v/d. no fever. no chills. no sweats. Kaia carbone, ELIO SYED MD [facility] 01/07/2023 14:15:45 04/06/2023 text/html HIV/HBV. CKD.Telemedicine visit. pt home in [place]. pt missed in person visit due to [...] 68 syphilis neg;HIV notdeetected09/2021 HIV VL nondetceted; Fu9=427; ALT/AST wnl; hBV VL nondetceted;eGFR>59; HCV nondetected.got 2 doses of COVID vaccine.CKD hx.med list reviewed. no OTCon Valtrex suppression tx. has not been sick since she was last seenno new MSSA episodesno weight changes. no n/v/d. no fever. no chills. no sweats. Erin Syed MD [address] [place] [address], [phone], ELIO SYED MD [facility] 04/06/2023 11:51:38 07/06/2023 text/html HIV/HBV.Atripla 1 tab po qhs for both HIV/HBV.happy w Atripla, and not willing to switch regimen. she is aware of new regimenscompliant w medsno recent labs; did not go to get labs done.not sexually active03/2022 Cd4 439 AST 31 ALT 48 eGFR 68 syphilis neg;HIV notdeetected09/2021 HIV VL nondetceted; Ue9=198; ALT/AST wnl; hBV VL nondetceted;eGFR>59; HCV nondetected.pharyngiti s. URI. yellow phlegm . no fever. no SOBCKD hx.med list reviewed. no OTCon Valtrex suppression tx. has not been sick since she was last seenno new MSSA episodesdid not go for u/a abd;no allergies to antibiotic Erin Syed MD [address] [place] [address], [phone], ELIO SYED MD [facility] 07/06/2023 10:05:08 10/06/2023 text/html HIV/HBV.Atripla 1 tab [...] 68 syphilis neg;HIV notdeetected09/2021 HIV VL nondetceted; Ha5=118; ALT/AST wnl; hBV VL nondetceted;eGFR>59; HCV nondetected.CKD hx.med list reviewed. no OTCon Valtrex suppression tx. has not been sick since she was last seenno new MSSA episodesno allergies to antibioticnot sexually active Erin Syed MD [address] [place] [address], [phone], ELIO SYED MD [facility] 10/07/2023 00:13:53 12/30/2023 text/html HIV/HBV.Atripla 1 tab po qhs for both HIV/HBV.happy w Atripla, and not willing to switch regimen. she is aware of new regimens to include TDF free options, TAF free options, 2 drug options, injectables.compliant w medsnot sexually active10/2023 HIV VL nondetected; HBV VL Nondetected; WI0=081; F1 fibrosis; eGFR=58; AST/ALT wnl; t bili nl; alb nl; TSH wnl; HaIC 6.4; GC/chlamydia neg; hyperlipidemia; RPR NR; HCV ab neglabs reviewed with pt03/2022 Cd4 439 AST 31 ALT 48 eGFR 68 syphilis neg;HIV notdeetected09/2021 HIV VL nondetceted; Kg5=821; ALT/AST wnl; hBV VL nondetceted;eGFR>59; HCV nondetected.CKD hx.reports has seen PCP recentlyu/s abd 12/28 fatty liver; and calcified granulomas on liver/spleen; she will undergo a CT scan of abd. she is aware of results.med list reviewed. no OTCon Valtrex suppression tx. has not been sick since she was last seenno new MSSA episodesno allergies to antibioticnot sexually active Erin Syed MD [address] [place] [address], [phone], ELIO - ERIN SYED MD [facility] 12/30/2023 11:30:11 OBGyn Episode No OBEpisode recorded.
== END ==
LOC: HO.CARD 12:49
PROVIDERS: PCP Internal Medicine; Visit Provider Nurse Practitioner Family
DX: R55 Syncope and collapse (principal); R00.2 Palpitations
CPT/HCPCS: 93242

== ENCOUNTER → 2024-08-16 12:52 | Outpatient (BNV) | payer MEDICARE, SELFPAY | PROVIDERS: PCP Internal Medicine; Visit Provider Internal Medicine | DX: I47.10 Supraventricular tachycardia, unspecified (principal) | CPT/HCPCS: 93244 ==

== ENCOUNTER 2024-12-01 08:27 | Outpatient (AMB) | payer MEDICARE, SELFPAY ==
--- NOTE | 2024-12-01 08:46 | AM.OFFVISMDC ---
Intake Vital Signs 12/01/24 08:47 Height 4 ft 11 in Weight 140 lb BMI 28.3 BP 130/80 Blood Pressure Location Lt brachial Position Sitting Pulse 78 Pulse Source Pulse Oximeter Temp 97.1 F Temp Source Temporal Artery Scan Pulse Oximetry (%) 96 Oxygen Delivery Method Room Air Intake Visit Reasons: wellness - see comments Intake Note: Patient is here for an Annual Wellness Visit. Program Support Specialist Required: No Telephone Sales Representative: Telephone Sales Representative offered & declined Accompanied by: Self / Same As Patient Allergies No Known Allergies Allergy (Verified 12/01/24 08:47) HPI wellness - see comments HPI Details 64-year-old female presents to the office for annual wellness exam. In addition, patient wishes to discuss her recent ED visit with a new onset seizure diagnosis. FORMERLY [facility], [facility] Medical History Seizure disorder Heart palpitations Syncope Hypercalcemia Essential (primary) hypertension Surgical History History of ankle surgery History of 3 sections History of cholecystectomy Social History Housing: House Alcohol intake: never Patient Tobacco Use Status: Never used Tobacco e-Cigarette/Vaping Use: Never Used Second Hand Smoke Exposure: No service: No Current occupational status: disabled Cognitive needs: No Hearing needs: No Vision needs: No Questionnaire Medicare Wellness Checkup What [age] your age?: 65-69 (64) What gender do you identify with?: female During the past 4 weeks, how much have you been bothered by emotional problems such as feeling anxious, depressed, irritable, sad or downhearted, and blue?: not at all During the past 4 weeks, has your physical & emotional health limited your social activities with family, friends, neighbors, or groups?: not at all During the past 4 weeks, how much bodily pain have you generally had?: no pain During the past 4 weeks, was someone available to help you if you needed & wanted help?: no, not at all During the past 4 weeks, what was the hardest physical activity you could do for at least 2 minutes?: very light Can you get to places out of walking distance without help? (For eg., can you travel alone on buses, taxis or drive your car?): Yes Can you go shopping for groceries or clothes without someone's help?: Yes Can you prepare your own meals?: Yes Can you do your housework without help?: Yes Because of any health problems, do you need the help of another person with your personal care needs such as eating, bathing, dressing or getting around the house?: No Can you handle your own money without help?: Yes During the past 4 weeks, how would you rate your health in general?: fair During the past 4 weeks how have things been going for you?: pretty well Are you having difficulties driving your car?: no Do you always fasten your seat belt when you are in a car?: yes, usually During past 4 weeks, have you been bothered by the following: never: Sexual problems? and Problems using the telephone? and always: Falling or dizzy when standing up and Tiredness or fatigue? Have you fallen 2 or more times in the past year?: No Are you afraid of falling?: No Are you a smoker?: no During the past 4 weeks, how many drinks of wine, beer, or other alcoholic beverages did you have?: no alcohol at all Do you exercise for about 20 minutes 3 or more times a week?: yes, all the time Have you been given information to help with the following?: yes: Keeping track of your medications? and no: Hazards in your house that might hurt you? How often do you have trouble taking medicines the way you have been told to take them?: I always take medicine as prescribed How confident are you that you can control & manage most of your health problems?: very confident What is your race?: White Mini Mental State Exam (MMSE) Orientation What is the (year) (season) (date) (day) (month)?: year, season and date Score Score: 3 Activity of Daily Living Bathing - sponge bath, tub bath or shower: receives no assistance (gets in/out by self, if usual bathing means Dressing - getting clothes from closets & drawers, including inner/outer garments & fasteners.: gets clothes & gets completely dressed without help Toileting - going to the 'toilet room' for urine/bowel elimination & cleaning self/arranging clothes: goes to toilet room, cleans self, arranges clothes without help Transfer: moves in & out of bed and chair without help (may use support object) Continence: controls urination/bowel movements completely by self Feeding: feeds self without help Total Score: 0 Information obtained from: patient Using telephone: independent Traveling: needs assistance Shopping: independent Preparing meals: independent Housework: independent Taking medicine: independent Managing money: independent PHQ-9 Over the last 2 weeks, how often have you been bothered by any of the following problems? 1. Little interest or pleasure in doing things: not at all 2. Feeling down, depressed, or hopeless: not at all 3. Trouble falling or staying asleep, or sleeping too much: not at all 4. Feeling tired or having little energy: not at all 5. Poor appetite or overeating: not at all 6. Feeling bad about yourself - or that you are a failure or have let yourself or your family down: not at all 7. Trouble concentrating on things, such as reading the newspaper or watching television: not at all 8. Moving or speaking so slowly that other people could have noticed. Or the opposite - being so fidgety or restless that you have been moving around a lot more than usual: not at all 9. Thoughts that you would be better off or of hurting yourself in some way: not at all Total score: 0 Depression Screening Interpretation: Negative Depression Screening Done: Yes Source: Developed by Drs. Malachi Angeles, Lisette Lipscomb, Tiago Garcia and colleagues, with an educational geena from [employer]. Thrive Questionnaire Date Thrive assessed: 08/05/24 I am a: Patient What is your living situation today?: I have a steady place to live Within the past 12 months, did the food you bought not last and you didn't have the money to get more?: Never true Within the past 12 months, did you worry whether your food would run out before you got money to buy more?: Never true Do you have trouble paying for medicines?: No Do you have trouble getting transportation to medical appointments?: No Do you have trouble paying your heating and electricity bill?: No Do you have trouble taking care of your child, family member or friend?: No Do you have trouble with day-to-day activities such as bathing, preparing meals, shopping, managing finances, etc.?: No Are you currently unemployed and looking for a job?: No Are you interested in more education?: No Please select the resources that you would like help with: None Currently or been in a relationship where the following occur: No concerns reported THRIVE Score: 0 KRISTI-7 AMB Questionnaire KRISTI-7 Date KRISTI - 7 assessed: 08/05/24 Source: Developed by Drs. Malachi Angeles, Lisette Lipscomb, Tiago Garcia and colleagues, with an educational geena from [employer]. Physical Exam Vital Signs: Last Vital Signs Temp 97.1 F 12/01/24 08:47 Pulse 78 12/01/24 08:47 BP 130/80 12/01/24 08:47 Pulse Ox 96 12/01/24 08:47 Oxygen Delivery Method Room Air 12/01/24 08:47 BMI result Body Mass Index 28.3 Balance: Romberg: Tandem Walk: Walk and Turn: Rise from sit to stand: Hearing Whisper test: Const General: cooperative and healthy appearing Nutritional Appearance: well nourished Orientation/consciousness: patient oriented x3 Limitations: no limitations HEENT Head: Yes normal to inspection Eyes General: appearance normal, both eyes and all related structures Neck Neck: Yes normal visual inspection Chest Chest palpation & inspection: normal palpation of entire chest wall Resp Effort & Inspection: normal respiratory effort Neuro General: patient oriented x3 Assessment & Plan Assessment & Plan (1) Annual physical exam: Code(s): Z00.00 - Encounter for general adult medical examination without abnormal findings Plan: See above. (2) Seizure disorder: Code(s): G40.909 - Epilepsy, unspecified, not intractable, without status epilepticus Plan: Events at the recent ED visit is unclear. Records from [facility] has been requested. Patient was advised to continue the Lamictal. A neurology consult has been requested. Plan History of Present Illness - The patient is a 64-year-old female presenting with a recent seizure episode. - She experienced a seizure severe enough to require CPR and lost consciousness, leading to an emergency room visit. - Diagnostic workup in the emergency department included blood work and an x-ray due to coughing, resulting in a seizure disorder diagnosis. - She was prescribed new medication for seizure management. - The patient has a history of hypertension, currently managed with medication. - Preventative care measures include scheduling a mammogram and completing a colon cancer screening with a stool test. Social History - The patient lives with her son, who assists her with transportation and daily activities. - She stopped driving about a year ago due to seizures. Review of Systems - Neurological: Reports recent seizure episode with loss of consciousness. Denies any current neurological symptoms. - Respiratory: Reports coughing during the emergency visit. Denies current wheezing. - Cardiovascular: Denies chest pain or palpitations. - Ophthalmologic: Denies visual disturbances such as halos around lights. - Auditory: Denies hearing problems. Physical Exam General: Cooperative and healthy appearing Nutritional Appearance: Well nourished Orientation/consciousness: Patient oriented x3 Limitations: No limitations Head: Normal to inspection General: Appearance normal, both eyes and all related structures Neck: Normal visual inspection Chest: Normal palpation of entire chest wall Respiratory: No wheezing noted currently. ormal respiratory effort Neurology: Patient oriented x3, recent seizure diagnosed, requires neurology follow-up appointment. Results - Labs: Blood work performed in the emergency department, details not specified. - Imaging: X-ray performed due to coughing, details not specified. Plan 1. Seizure Disorder - Continue current seizure medication until neurology consultation. - Neurology appointment to be scheduled for further evaluation and management. 2. Hypertension - Continue current antihypertensive medication regimen. 3. Preventative Care - Order mammogram for breast cancer screening. - Order Cologuard for colon cancer screening. Discussion Notes I discussed with the patient the importance of continuing her current seizure medication until she sees a neurologist. We will schedule a neurology appointment for further evaluation. I also emphasized the need for preventative care, including a mammogram and colon cancer screening with Cologuard. The patient was advised not to drive until cleared by a neurologist due to her recent seizure. Patient Instructions - Continue taking your seizure medication as prescribed until you see the neurologist. - Attend the neurology appointment once scheduled. - Complete the mammogram and Cologuard tests as ordered. - Do not drive until cleared by a neurologist. Orders: Orders MM screening mammo BI Today Z12.31 - Encounter for screening mammogram for malignant neoplasm of breast Referrals Cologuard Test Z12.11 - Encounter for screening for malignant neoplasm of colon Neurology Referral G40.909 - Epilepsy, unspecified, not intractable, without status epilepticus Quality Reporting (2019) Depression/Bipolar (159/160/161/177) PHQ-9: Total score: 0 Coding Level of Care Code Medicare First (G0438) Est Pt Level 4 (92279) Diagnoses Annual physical exam Z00.00 Seizure disorder G40.909
[2024-12-01 08:47] VITALS: BP 130/80; PULSE 78; TEMP 36.2; O2SAT 96; BMI 28.3
--- OUTSIDE RECORDS SUMMARY | 2024-12-01 08:54 | XMS_ITS | Clinical Summary ---
Author Organization [facility] Address [address] [address] Phone Care Team Providers Care Geological Specialist Name Role Phone Pcp, Unknown Primary Care Provider Unavailabl e Allergies No known active allergies Social History Tobacco Use Types Packs/Day Years Used Date Smoking Tobacco: Never Assessed Education Answer Date Recorded Are you interested in more education? Not on jade e 09/08/2023 Are you concerned about learning? Not on file 09/08/2023 No 09/08/2023 No 09/08/2023 Digital Access Answer Date Recorded No 09/08/2023 No 09/08/2023 Reliable internet access at home? Not on file 09/08/2023 Device with a working camera? Not on file Intimate Partner Violence Answer Date R ecorded Are you denied basic needs s uch as food, clothing, or medical care? No 09/08/2023 In the past 12 months have y ou been in a relationship with a person who hurts, threatens, or tries to control you? No 09/08/2023 Are you denied basic needs s uch as food, clothing, or medical care? No 09/08/2023 In the past 12 months have y ou been in a relationship with a person who hurts, threatens, or tries to control you? No 09/08/2023 Comments Unknown Sex and Gender Information Value Date Recorded Sex Assigned at Not on file Legal Sex Female 2:51 PM EDT Gender Identity Not on file Sexual Orientation Not on file Last Filed Vital Signs Vital Sign Reading Time Taken Comments Blood Pressure 188/138 09/08/2023 7:17 PM EDT Pulse 79 09/08/2023 7:17 PM EDT Temperature 36.1 C (97 F) 09/08/2023 7:17 PM EDT Respiratory Rate 16 09/08/2023 7:17 PM EDT Oxygen Saturation 97% 09/08/2023 7:17 PM EDT Inhaled Oxygen Concentration - - Weight 77.1 kg (170 lb) 09/08/2023 5:51 PM EDT Height 149.9 cm (4' 11 ) 09/08/2023 5:51 PM EDT Body Mass Index 34.34 09/08/2023 5:51 PM EDT Plan of Treatment Not on file Medical Devices Not on file Insurance MEDICARE PART A & B MEDICARE PART A & B MEDICARE PART A & B MEDICARE PART A & B MEDICARE PART A & B MEDICARE PART A & B Care Teams Geological Specialist Relationship Specialty Start Date End Date Pcp, Unknown PCP - General 09/08/23 Additional Source Comments The information contained in this document represents components of the legal health record. It is not the complete legal health record.[facility]
== END 2024-12-01 09:17 | disposition home or self-care (01) ==
LOC: HO.HMCH 08:28
PROVIDERS: PCP Internal Medicine; Visit Provider Internal Medicine
DX: Z00.00 Encounter for general adult medical examination without abnormal findings (principal); G40.909 Epilepsy, unspecified, not intractable, without status epilepticus

== ENCOUNTER → 2024-12-01 08:27 | Outpatient (BNVA) | payer MEDICARE, SELFPAY | PROVIDERS: PCP Internal Medicine; Visit Provider Internal Medicine | DX: Z00.00 Encounter for general adult medical examination without abnormal findings (principal); I10 Essential (primary) hypertension; G40.909 Epilepsy, unspecified, not intractable, without status epilepticus | CPT/HCPCS: 96127; 99212 ==

== ENCOUNTER 2025-01-03 15:26 | Outpatient (AMB) | payer MEDICARE, SELFPAY ==
[2025-01-03 15:30] VITALS: BP 140/70; PULSE 78; TEMP 36.1; O2SAT 96; BMI 29.0
--- NOTE | 2025-01-03 15:30 | A.OFFPC_ITS ---
Vital Signs 01/03/25 15:30 Height 4 ft 11 in Weight 143 lb 6 oz BMI 29.0 BP 140/70 H Blood Pressure Location Lt brachial Position Sitting Pulse 78 Pulse Source Pulse Oximeter Temp 97.0 F Temp Source Temporal Artery Scan Pulse Oximetry (%) 96 Oxygen Delivery Method Room Air Intake Visit Reasons: cist on chest Allergies No Known Allergies Allergy (Verified 01/03/25 15:32) Tobacco use date assessed: 01/03/25 Dental Screening Dental Screen Date: 01/03/25 Did you have a dental visit in the last 12 months?: Yes Did you have a dental problem in the last 6 months where you did not have access to dental care?: No Was dental information given to patient?: Patient has dentist HPI HPI Comments History of Present Illness Details The patient is a 64-year-old female presenting with a cyst on her chest. The lesion resembles a boil or cyst, as suggested by others, but the patient is uncertain of its origin. She has not observed any specific insect but notes that her house gets hot, prompting her to open windows, which might allow insects to enter. She has been advised to use oral antibiotics and a topical cream to treat the infection. The patient has a history of taking doxycycline years ago and will be using it again for 10 days, twice daily, with precautions to drink water and remain upright to prevent esophageal irritation. FOR[facility]LY [facility] Medical History Seizure disorder Heart palpitations Syncope Hypercalcemia Essential (primary) hypertension Surgical History History of ankle surgery History of 3 sections History of cholecystectomy Social History Housing: House Alcohol intake: never Patient Tobacco Use Status: Never used Tobacco e-Cigarette/Vaping Use: Never Used Second Hand Smoke Exposure: No service: No Current occupational status: disabled Cognitive needs: No Hearing needs: No Vision needs: No Questionnaire PHQ-9 Over the last 2 weeks, how often have you been bothered by any of the following problems? 1. Little interest or pleasure in doing things: not at all 2. Feeling down, depressed, or hopeless: not at all 3. Trouble falling or staying asleep, or sleeping too much: not at all 4. Feeling tired or having little energy: not at all 5. Poor appetite or overeating: not at all 6. Feeling bad about yourself - or that you are a failure or have let yourself or your family down: not at all 7. Trouble concentrating on things, such as reading the newspaper or watching television: not at all 8. Moving or speaking so slowly that other people could have noticed. Or the opposite - being so fidgety or restless that you have been moving around a lot more than usual: not at all 9. Thoughts that you would be better off or of hurting yourself in some way: not at all Total score: 0 Depression Screening Interpretation: Negative Depression Screening Done: Yes Source: Developed by Drs. Malachi Angeles, Lisette Lipscomb, Tiago Garcia and colleagues, with an educational geena from [employer]. Thrive Questionnaire Date Thrive assessed: 08/05/24 I am a: Patient What is your living situation today?: I have a steady place to live Within the past 12 months, did the food you bought not last and you didn't have the money to get more?: Never true Within the past 12 months, did you worry whether your food would run out before you got money to buy more?: Never true Do you have trouble paying for medicines?: No Do you have trouble getting transportation to medical appointments?: No Do you have trouble paying your heating and electricity bill?: No Do you have trouble taking care of your child, family member or friend?: No Do you have trouble with day-to-day activities such as bathing, preparing meals, shopping, managing finances, etc.?: No Are you currently unemployed and looking for a job?: No Are you interested in more education?: No Please select the resources that you would like help with: None Currently or been in a relationship where the following occur: No concerns reported THRIVE Score: 0 AUDIT C Alcohol Use Questionnaire (AUDIT-C) 1. How often do you have a drink containing alcohol?: Never 3. How often do you have six or more drinks on one occasion?: Never Total Score: 0 KRISTI-7 AMB Questionnaire KRISTI-7 Date KRISTI - 7 assessed: 08/05/24 Feeling nervous, anxious, or on edge: 0 = Not at all Not being able to stop or control worryin = Not at all Worrying too much about different things: 0 = Not at all Trouble relaxin = Not at all Being so restless that it is hard to sit still: 0 = Not at all Becoming easily annoyed or irritable: 0 = Not at all Feeling afraid as if something awful might happen: 0 = Not at all Total KRISTI-7 score (0-4 normal; 5-9 mild; 10-14 moderate; 15-21 severe): 0 Source: Developed by Drs. Malachi Angeles, Lisette Lipscomb, Tiago Garcia and colleagues, with an educational geena from [employer]. Review of Systems Const Details: Positives besides what was mentioned in HPI are in BOLD Constitutional: No Weight Change, No Fever, No Chills, No Night Sweats, No Fatigue, No Malaise ENT/Mouth: No Hearing Changes, No Ear Pain, No Nasal Congestion, No Sinus Pain, No Hoarseness, No sore throat, No Rhinorrhea, No Swallowing Difficulty Eyes: No Eye Pain, No Swelling, No Redness, No Foreign Body, No Discharge, No Vision Changes Cardiovascular: No Chest Pain, No SOB, No PND, No Dyspnea on Exertion, No Orthopnea, No Claudication, No Edema, No Palpitations Respiratory: No Cough, No Sputum, No Wheezing, No Smoke Exposure, No Dyspnea Gastrointestinal: No Nausea, No Vomiting, No Diarrhea, No Constipation, No Pain, No Heartburn, No Anorexia, No Dysphagia, No Hematochezia, No Melena, No Flatulence, No Jaundice Genitourinary: No Dysmenorrhea, No DUB, No Dyspareunia, No Dysuria, No Urinary Frequency, No Hematuria, No Urinary Incontinence, No Urgency, No Flank Pain, No Urinary Flow Changes, No Hesitancy Musculoskeletal: No Arthralgias, No Myalgias, No Joint Swelling, No Joint Stiffness, No Back Pain, No Neck Pain, No Injury History Skin: No Skin Lesions, No Pruritis, No Hair Changes, No Breast/Skin Changes, No Nipple Discharge Neuro: No Weakness, No Numbness, No Paresthesias, No Loss of Consciousness, No Syncope, No Dizziness, No Headache, No Coordination Changes, No Recent Falls Psych: No Anxiety/Panic, No Depression, No Insomnia, No Personality Changes, No Delusions, No Rumination, No SI/HI/AH/VH, No Social Issues, No Memory Changes, No Violence/Abuse Hx., No Eating Concerns Heme/Lymph: No Bruising, No Bleeding, No Transfusions History, No Lymphadenopathy Endocrine: No Polyuria, No Polydipsia, No Temperature Intolerance Physical exam (Primary Care) Vital Signs: Last Vital Signs Temp 97.0 F 01/03/25 15:30 Pulse 78 01/03/25 15:30 BP 140/70 H 01/03/25 15:30 Pulse Ox 96 01/03/25 15:30 Oxygen Delivery Method Room Air 01/03/25 15:30 BMI result Body Mass Index 29.0 Tobacco/Smoking Status: Tobacco use Status Tobacco use date assessed 01/03/25 01/03/25 15:33 Patient Tobacco Use Status Never used Tobacco 01/03/25 15:33 e-Cigarette/Vaping Use Never Used 01/03/25 15:33 PHQ-9: PHQ-9 Score PHQ-9: Total score 0 01/03/25 15:33 Depression Screening Interpretation: Negative Thrive Assessment: Date of Thrive Assessment Date Thrive assessed 08/05/24 01/03/25 15:33 Currently or been in a relationship where the following occur: No concerns reported Const Other: Pertinent findings are in BOLD GENERAL APPEARANCE NAD, activity normal for age, well developed/ well nourished, no cyanosis, pallor, or diaphoresis. EYES lids/conjunctiva normal. EARS/NOSE/THROAT Mucous membranes moist, nares normal, lips/teeth normal uvula midline without oral pharyngeal erythema, exudate or swelling TMs normal bilaterally. No lymphangitis/lymphedema. HEAD/NECK normocephalic atraumatic, no facial trauma, neck is supple. RESPIRATORY respiratory effort normal, speaks in full sentences, no tripod position, no accessory muscle use. Lungs clear to auscultation without rhonchi, wheezes, rales CARDIAC Regular rate and rhythm, no edema. ABDOMINAL Soft, ND/NT. No evidence of fluid wave. No pulsatile masses on exam, rebound tenderness, Harmon sign or pain over Mcburney's point. MUSCLES/EXTREMITIES No abnormal range of motion, no swelling. SKIN Warm, pink and dry. No rashes, dermatoses, petechiae or lesions. Red cyst on upper right sided chest. NEUROLOGICAL Speech is clear and appropriate. Normal level of consciousness. Gait and coordination are normal. 5/5 strength in all extremities. PSYCH Normal mood and affect. Judgement/competence is appropriate Coding Level of Care Code Est Pt Level 3 (80944) Diagnoses Skin cyst L72.9 Time Spent (min) 20 Assessment & Plan Assessment & Plan (1) Skin cyst: Code(s): L72.9 - Follicular cyst of the skin and subcutaneous tissue, unspecified Category: Medical Plan: - Prescribed doxycycline for 10 days, to be taken twice daily with water and while remaining upright to prevent esophageal irritation. - Advised to apply a triple antibiotic cream up to three times daily without the need for covering unless to prevent staining. - Follow-up with regular physician if no improvement is observed. Plan I discussed with the patient the likelihood of the lesion being an insect bite with secondary infection and the treatment plan involving doxycycline and topical antibiotics. I advised her on the proper administration of doxycycline, including taking it with water and remaining upright to avoid esophageal irritation. We also discussed the use of a triple antibiotic cream and the option to cover the lesion to prevent staining. I recommended a follow-up with her regular physician if there is no improvement. Medications: New doxycycline hyclate 100 mg PO BID 20 caps 0RF
--- OUTSIDE RECORDS SUMMARY | 2025-01-03 18:36 | XMS_ITS | Clinical Summary ---
Author Organization [facility] Address [address] [address] Phone Care Team Providers Care Manager Program Name Role Phone Pcp, Unknown Primary Care [...] MEDICARE PART A & B Care Teams Manager Program Relationship Specialty Start Date End Date Pcp, Unknown PCP - General 09/08/23 Additional Source Comments The information contained in this document represents components of the legal health record. It is not the complete legal health record.[facility]
== END 2025-01-03 16:45 | disposition home or self-care (01) ==
LOC: HO.HMCH 15:26
PROVIDERS: PCP Internal Medicine; Visit Provider Internal Medicine
DX: L72.9 Follicular cyst of the skin and subcutaneous tissue, unspecified (principal)

== ENCOUNTER → 2025-01-03 15:26 | Outpatient (BNVA) | payer MEDICARE, SELFPAY | PROVIDERS: PCP Internal Medicine; Visit Provider Internal Medicine | DX: L72.9 Follicular cyst of the skin and subcutaneous tissue, unspecified (principal) | CPT/HCPCS: 96127; 99212 ==